=== PATIENT | male | born 1950 | race Caucasian/White ===

== ENCOUNTER → 2023-09-17 10:27 | Outpatient (REF) | payer MEDICARE, OTHER, SELFPAY ==
[2023-09-17 13:13] LABS: Urine Albumin Negative (Neg - Trace); Urine Bilirubin Negative (Negative); Urine Character Clear (Clear); Urine Color Yellow; Urine Glucose Negative (Negative); Urine Ketone Negative (Negative); Urine Leukocyte Negative (Negative); Urine Nitrite Negative (Negative); Urine Occult Blood Negative (Negative); Urine Urobilinogen Negative (Neg - 1+)
[2023-09-17 13:14] LABS: PSA, Total - Screen 1.58 ng/ml (0.0-4.0)
== END ==
LOC: REG 10:27
PROVIDERS: ATTENDING PHYSICIAN Family Medicine
DX: R35.0 Frequency of micturition (principal); Z87.442 Personal history of urinary calculi
CPT/HCPCS: 36415; 81003; G0103

== ENCOUNTER → 2023-10-29 10:07 | Outpatient (REF) | payer MEDICARE, OTHER, SELFPAY ==
[2023-10-29 12:35] LABS: ALT (SGPT) 47 U/L (0-50); AST (SGOT) 43 U/L (17-59); Albumin 4.5 g/dl (3.5-5.0); Alkaline Phosphatase 87 U/L (38-126); Direct Bilirubin 0.4 mg/dl (0.0-0.4); Total Bilirubin 1.2 mg/dl (0.2-1.3); Total Protein 6.8 g/dl (6.3-8.2)
[2023-10-29 18:59] LABS: Hepatitis B Surface Antigen Negative (Negative)
[2023-10-29 19:18] LABS: Hepatitis B Surface Antibody Negative; Hepatitis C Antibody Negative (Negative)
[2023-10-29 20:09] LABS: Hepatitis A Antibody, Total Positive (Negative)
== END ==
LOC: REG 10:07
PROVIDERS: ATTENDING PHYSICIAN Internal Medicine Gastroenterology
DX: R79.89 Other specified abnormal findings of blood chemistry (principal)
CPT/HCPCS: 36415; 80076; 86706; 86708; 86803; 87340

== ENCOUNTER → 2023-12-25 09:45 | Outpatient (REF) | payer MEDICARE, OTHER, SELFPAY | LOC: DHSLP 09:45 | PROVIDERS: ATTENDING PHYSICIAN Psychiatry & Neurology Neurology; FAMILY PHYSICIAN Family Medicine | DX: G47.33 Obstructive sleep apnea (adult) (pediatric) (principal) | CPT/HCPCS: 95811 ==

== ENCOUNTER 2024-02-04 10:29 | Inpatient (IN) | payer MEDICARE, OTHER, SELFPAY ==
[2024-02-02] VITALS (13 sets, daily range): BP systolic 104–152; BP diastolic 57–90; PULSE 68; BMI 28.1; BMI 27.1
--- NOTE | 2024-02-02 11:23 | ED.GENMED ---
History of Present Illness
<Trinity Pedroza PA-C - Last Filed: 02/02/24 16:39>
General
Chief Complaint: Chest Pain
Source: patient and spouse
Time Seen by Provider: 02/02/24 11:08
History of Present Illness
History of Present Illness:
73yoM with a history of coronary artery disease s/p PCI, prior CVA, remote history of thyroid cancer, and GERD presenting with his for evaluation of chest pain. Symptoms initially started 4 days ago while he was visiting children in [place]. He
states he was sitting down when he had an abrupt onset of L sided chest discomfort. The pain was severe initially. He took an extra dose of Protonix without improvement but had relief with nitroglycerin. He has been having intermittent chest
discomfort since that time. He states it feels like something is sitting on his chest. The discomfort comes and goes randomly and lasts about 20 minutes before resolving. Nothing makes the pain better or worse. He also reports shortness of breath,
epigastric pain, and abdominal bloating. He denies any syncope, diaphoresis, nausea, vomiting, fevers. 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
Past History
<Trinity Pedroza PA-C - Last Filed: 02/02/24 16:39>
Past History
ED Past Medical History: CAD, Cancer (thyroid), CVA (February 2019), HTN, Hypercholesterolemia, SD and Hypothyroidism
ED Past Surgical History: Cardiac
Social History
Tobacco: Non-smoker
Alcohol: None
Personal:
Living: with family
Employment: Employed
Family History
Family History: Other (Father with coronary disease)
Phy Exam
<Trinity Pedroza PA-C - Last Filed: 02/02/24 16:39>
General Physical Exam
General Presentation: well appearing and no apparent distress
General age: appears stated age
General Skin: warm and dry
General Habitus: normal
General Mental: alert
Cardiovascular Exam
Cardiovascular Exam: regular rate/rhythm, no edema and no murmur
Pulmonary Exam
Pulmonary Exam: lungs clear, no respiratory distress, no crackles and no wheezing
Skin Exam
Skin Exam: normal color and warm/dry
Psychiatric Exam
Psychiatric Exam: normal mood/affect
Scores
<Trinity Pedroza PA-C - Last Filed: 02/02/24 16:39>
Heart Score for Chest Pain Patients
STEMI patient?: No
History: Moderately Suspicious
ECG: Nonspecific Repolarization
Age: >/= 65 years
Risk Factors: >/= 3 Risk Factors or History of CAD
Troponin: </= Normal Limit
Heart Score for Chest Pain Patients: 6
Heart Score Risk: 20.3% MACE over next 6 weeks
Course
<Trinity Pedroza PA-C - Last Filed: 02/02/24 16:39>
Orders/Labs/Results
Orders:
Orders
02/02/24 11:03
ECG [Electrocardiogram (*1)] Urgent
Reason for Study: Chest Pain
EKG- Treatment ONCE
02/02/24 11:27
CT Abd/pelvis W Iv Cont Urgent
Comment:
Reason For Exam: Epigastric pain
Cardiac Monitoring- Treatment ONCE
CR Chest - 2 Views Urgent
Comment:
Reason For Exam: CP
02/02/24 11:31
Complete Blood Count/With Diff Urgent
Comprehensive Metabolic Panel Urgent
Lipase Urgent
Troponin I Urgent
02/02/24 13:28
EKG- Treatment ONCE
02/02/24 14:24
Troponin I Urgent
02/02/24 14:30
Electrocardiogram (*1) Urgent
Reason for Study: Chest Pain
Abnormal Lab Results
02/02/24
11:31
Absolute Monos (auto) 0.7 H 10^3/uL
(0.1-0.6)
Carbon Dioxide 31 H mmol/L
(22-30)
BUN 22 H mg/dl
(9-20)
Glucose 103 H mg/dl
(70-99)
ALT 52 H U/L
(0-50)
02/02/24 11:31
02/02/24 11:31
Vital Signs
Initial and Last Documented VS:
Initial Vital Signs
Temp Pulse Resp BP Pulse Ox
98.1 F 76 18 126/79 97
02/02/24 11:04 02/02/24 11:04 02/02/24 11:04 02/02/24 11:04 02/02/24 11:04
Last Documented Vital Signs
Temp Pulse Resp BP Pulse Ox
98.1 F 68 19 145/81 94
02/02/24 11:04 02/02/24 15:15 02/02/24 15:15 02/02/24 15:00 02/02/24 15:15
<Tony Almonte MD - Last Filed: 02/02/24 14:56>
Orders/Labs/Results
Orders:
Orders
02/02/24 11:03
ECG [Electrocardiogram (*1)] Urgent
Reason for Study: Chest Pain
EKG- Treatment ONCE
02/02/24 11:27
CT Abd/pelvis W Iv Cont Urgent
Comment:
Reason For Exam: Epigastric pain
Cardiac Monitoring- Treatment ONCE
CR Chest - 2 Views Urgent
Comment:
Reason For Exam: CP
02/02/24 11:31
Complete Blood Count/With Diff Urgent
Comprehensive Metabolic Panel Urgent
Lipase Urgent
Troponin I Urgent
02/02/24 13:28
EKG- Treatment ONCE
02/02/24 14:24
Troponin I Urgent
02/02/24 14:30
Electrocardiogram (*1) Urgent
Reason for Study: Chest Pain
Abnormal Lab Results
02/02/24
11:31
Absolute Monos (auto) 0.7 H 10^3/uL
(0.1-0.6)
Carbon Dioxide 31 H mmol/L
(22-30)
BUN 22 H mg/dl
(9-20)
Glucose 103 H mg/dl
(70-99)
ALT 52 H U/L
(0-50)
02/02/24 11:31
02/02/24 11:31
Vital Signs
Initial and Last Documented VS:
Initial Vital Signs
Temp Pulse Resp BP Pulse Ox
98.1 F 76 18 126/79 97
02/02/24 11:04 02/02/24 11:04 02/02/24 11:04 02/02/24 11:04 02/02/24 11:04
Last Documented Vital Signs
Temp Pulse Resp BP Pulse Ox
98.1 F 68 19 145/81 94
02/02/24 11:04 02/02/24 15:15 02/02/24 15:15 02/02/24 15:00 02/02/24 15:15
<Trinity Pedroza PA-C - Last Filed: 02/02/24 16:39>
MDM/Problems Addressed
Differential Diagnosis Includes:
73yoM here with chest and epigastric pain. Intermittent x 3-4 days. Initially improved with nitroglycerin. Also c/o SOB. Hx of CAD s/p PCI. He is afebrile and hemodynamically stable. He is well appearing in no distress. Exam is reassuring.
Differential diagnosis includes but is not limited to: ACS, arrhythmia, GERD, gastritis, pneumonia, less likely PE, doubt aortic dissection
Initial ED plan: Check cardiac labs, lipase, EKG, CXR, and CT abdomen.
<Trinity Pedroza PA-C - Last Filed: 02/02/24 16:39>
*EKG
Interpreted by ED Provider?: Yes
EKG Intrepretation Date: 02/02/24
Heart Rate: 63
Rate: normal
Rhythm: sinus
Interval: normal interval
QRS Pattern: normal QRS
Ischemia: T-wave inversion (aVL, V2, V3, V4)
*Critical Care Note
Total Time (30-74mins, 75-104mins- exclusive of procedures): Not Applicable
<Trinity Pedroza PA-C - Last Filed: 02/02/24 16:39>
Update Note
Update Note:
Labs overall unremarkable. EKG shows NSR with nonspecific T wave changes which appears unchanged from prior EKG. Troponin WNL. CXR is clear. CT abdomen is negative for acute findings. Dr. Almonte discussed case with cardiology. Will plan for admission
for further evaluation.
ED Attending Note
<Trinity Pedroza PA-C - Last Filed: 02/02/24 16:39>
-
Portions of this chart may have been created with voice recognition software.� Occasional wrong word or��sound alike� substitutions may have occurred due to the inherent limitations of voice recognition software.
<Tony Almonte MD - Last Filed: 02/02/24 14:56>
ED Attending Note
Patient seen and examined by attending physician: Yes
I performed the substantive portion of visit, reviewed & personally made and approve the management plan that is documented in note by myself or ADONAY.: Yes
ED Attending Note:
73-year-old male with recurring episodes of lower anterior chest pain. Nonexertional. Has occurred intermittently for the last 3 to 4 days. Was relieved with nitroglycerin in the 1 night. Currently asymptomatic. Patient with known cardiac
stents.
Lungs clear and equal. Heart regular rate and rhythm. Warm and dry. Abdomen nontender. No rebound or guarding no mass or hernia.
EKG is stable. Old anterior lateral changes. This very well may be an epigastric issue. However with intermittent recurring symptoms, relief with nitroglycerin and cardiac stenting feel this warrants a cardiac consultation.
Discharge Plan
Departure
Patient Disposition: Admit
Date of Disposition: 02/02/24
Time of Disposition: 15:06
Presentation/result/management discussed w/ accepting MD/DO: Hospitalist
Discharge Problem:
Chest pain
Prescriptions:
No Action
aspirin 81 MG tablet,delayed release (DR/EC)
81 mg PO QPM
levothyroxine [Levoxyl] 125 MCG tablet
125 mcg PO DAILY
Patient Comments:
02/02/24: Top Waddy wants the patient to only take Levoxyl, not generic. Spouse willing to bring Levoxyl from home.
losartan 25 MG tablet
12.5 mg PO QPM
ezetimibe 10 MG tablet
10 mg PO QPM
icosapent ethyl [Vascepa] 1 GM capsule
1 gm PO BID
nitroglycerin 0.4 MG tablet, sublingual
0.4 mg sublingual [id number] PRN (Reason: chest pain)
famotidine [Pepcid] 20 mg Tablet
20 mg PO DAILY
pantoprazole [Protonix] 40 mg Tablet,Delayed Release (Dr/Ec)
40 mg PO QPM
ketoconazole 2 % Shampoo
1 applic TOPICAL Q4D
fluticasone propionate 50 mcg/actuation [place],Suspension
1 spray INTRANASAL HSPRN PRN (Reason: conjestion)
rosuvastatin 40 mg Tablet
40 mg PO QPM
Centrum Silver 0.4 mg-300 mcg- 250 mcg Tablet
1 tab PO QPM
Eliquis 5 mg Tablet
5 mg PO BID
Referrals:
Dyan Martel MD [Family Provider] -
Interventions
Interventions:
*Risk Screen - Suicide Last Done: 02/02/24 11:04
*General Assessment Last Done: 02/02/24 11:04
*Neglect/Abuse Screening Last Done: 02/02/24 11:04
ED- Cardiac Assessment Last Done: 02/02/24 11:34
Discharge Date and Time
Print Language: VINCENTIAN
[2024-02-02 11:38] LABS: % Basophils 0.6 % (0-2); % Immature Granulocytes 0.4 % (0-0.5); % Lymphocytes 28.6 % (20.5-51.1); % Monocytes 8.4 % (1.7-9.3); Absolute Basophils 0.1 10^3/uL (0-0.2); Absolute Eosinophils 0.1 10^3/uL (0-0.7); Absolute Lymphocytes 2.4 10^3/uL (1.2-3.4); Absolute Monocytes 0.7 10^3/uL (0.1-0.6); Absolute Neutrophils 5.1 10^3/uL (1.4-6.5); Hematocrit 44.5 % (39.0-52.0); Hemoglobin 15.7 g/dL (13.0-18.0); Mean Corp Hgb Conc. 35.3 g/dL (33.0-37.0); Mean Corpuscular Volume 82.3 fL (80.0-94.0); Mean Platelet Volume 8.9 fL (7.4-10.4); Nucleated Red Blood Cells % 0 % (-); Platelet Count 331 10^3/uL (130-400); Red Blood Cell Count 5.41 10^6/uL (4.70-6.10); Red Cell Dist. Width 12.7 % (11.5-14.5); White Blood Cell Count 8.3 10^3/uL (4.8-10.8)
[2024-02-02 11:52] LABS: ALT (SGPT) 52 U/L (0-50); AST (SGOT) 38 U/L (17-59); Albumin 4.7 g/dl (3.5-5.0); Alkaline Phosphatase 109 U/L (38-126); Blood Urea Nitrogen 22 mg/dl (9-20); Calcium 10.2 mg/dl (8.4-10.2); Carbon Dioxide 31 mmol/L (22-30); Chloride 101 mmol/L (98-107); Estimated Creatinine Clearance 58 ml/min; Glucose 103 mg/dl (70-99); Lipase 139 U/L (23-300); Potassium 4.2 mmol/L (3.5-5.1); Sodium 139 mmol/L (135-145); Total Bilirubin 1.2 mg/dl (0.2-1.3); Total Protein 7.2 g/dl (6.3-8.2); eGFR > 60.00
[2024-02-02 12:03] LABS: Troponin I < 0.012 ng/ml
[2024-02-02 15:04] LABS: Troponin I < 0.012 ng/ml
--- NOTE | 2024-02-02 15:52 | CON.CAR ---
Addendum entered and electronically signed by Alex Cobos MD 02/02/24 17:15:
I saw and examined the patient.
The WIRE WEAVING LOOM SETTER's note was reviewed and I agree with the note.
73-year-old male with a history of coronary artery disease prior history of AK in 2002 with LAD stenting and LAD stenting 2017, GERD, PUD, CVA, hypercholesterolemia, diabetes and papillary thyroid carcinoma who who presents with epigastric
discomfort. He was in [place] and had intense epigastric discomfort on Thursday took Protonix and took 1 nitro. In total symptoms lasted 30 to 60 minutes. He had improvement after nitro but it is not clear how long it took to improve improvement did
not sound immediate. He since had some intermittent more more mild epigastric discomfort that occurred every day for the last 4 days. No clear precipitating factors. No additional GI symptoms. He was recently able to walk on his treadmill at 3.5
more miles per hour without development of epigastric pain. He said some recurrent episodes in the ER but is currently comfortable in no distress. ECG shows sinus rhythm with prior anterior AK and prior inferior AK. Troponin negative.
Exact etiology of symptoms unclear. Patient with known history of coronary artery disease which raises the possibility that symptoms could represent angina. However pieces of the pattern of his symptoms and lack of symptoms with physical exertion
makes coronary ischemia less likely. Would also consider intra-abdominal causes.
-Observation on telemetry
-Serial troponins
-Aspirin
-Hold Eliquis and transition to heparin while patient is being evaluated
Original Note:
Consultation
Consultation Request
Date/Time Consultation Requested: 02/02/2024 15:30
Date/Time Consultation Performed: 02/02/2024 15:40
Requesting Provider: Trinity Pedroza PA-C
Performing Provider: NAZ Zapata for Dr. Cobos
Reason for Consultation: Epigastric pain
Medical History
-
Chief Complaint: Chest pain
History of Present Illness:
Yusef Sommer is a 73-year-old male born in [facility] and immigrated in 1990 (known to Dr. Stuart Fisher, his primary bar tacker), with coronary artery disease (N0�apical myocardial infarction treated with thrombolytic therapy/salvage
angioplasty/stenting of the LAD and angioplasty of the second diagonal branch, 10/2002), acute coronary syndrome treated with angioplasty/stenting of the mid LAD (2017), 50% D2 stenosis by cardiac catheterization 2017, presumed cardioembolic stroke
status post thrombolytic therapy (on apixaban), LUISA on CPAP, dyslipidemia, PUD with H. pylori gastritis, depression, BPV, papillary thyroid carcinoma status post resection/XRT (2011), and ILR who presented to the emergency department with a chief
complaint of epigastric discomfort. His epigastric discomfort started 3 to 4 days ago while visiting his family in [place]. He had an abrupt onset of 10/10 lower chest discomfort. He took Protonix and had some water like he normally does for his
GERD and it did not improve. His then insisted he take a nitroglycerin and his pain resolved. He was considering going to the emergency department but was not sure where the best place was to get care in [place] so he held off. His 10/10
chest pain did not radiate but he reports his left arm 'felt weak' and lasted approximately 30 minutes. Stent that episode, he has been having intermittent discomfort. It does not last more than 15 minutes. Nothing makes it better or worse. He
reports he went on a walk yesterday and does not recall having any discomfort during his walk. He does endorse some decreased exercise tolerance as long as fatigue. He had the settings on his CPAP changed and even got a new machine and his fatigue
is not improving.
Past Medical History
Past Medical History: CAD, Cancer (Papillary thyroid carcinoma), CVA, GERD, Hypercholesterolemia, NIDDM and Other (LUISA on CPAP, PUD with H. pylori)
Past Surgical History: Other (Hernia repair [Reyes, 2022])
Social History
Tobacco: Former Smoker
Alcohol: None
Drug: None
Personal:
Living: With Family
Family History
Family History: Reviewed & Not Pertinent
Allergies / Home Medications
Allergy/AdvReac Type Severity Reaction Status Date / Time
bee venom protein (honey bee) Allergy Syncopy, Verified 02/02/24 11:01
Vagal
Reaction
lisinopril Allergy Dry Cough Verified 02/02/24 11:01
morphine Allergy Hives Verified 02/02/24 11:01
�Medication �Instructions �Recorded �Confirmed �Type
aspirin 81 mg tablet,delayed 81 mg PO QPM 09/16/16 02/02/24 History
release
ezetimibe 10 mg tablet 10 mg PO QPM 10/29/20 02/02/24 History
icosapent ethyl 1 gram capsule 1 gm PO BID 10/29/20 02/02/24 History
(Vascepa)
levothyroxine 125 mcg tablet 125 mcg PO DAILY 10/29/20 02/02/24 History
(Levoxyl)
losartan 25 mg tablet 12.5 mg PO QPM 10/29/20 02/02/24 History
nitroglycerin 0.4 mg sublingual 0.4 mg sublingual [id number] PRN 10/29/20 02/02/24 History
tablet chest pain
famotidine 20 mg tablet (Pepcid) 20 mg PO DAILY 11/25/22 02/02/24 History
pantoprazole 40 mg tablet,delayed 40 mg PO QPM 11/25/22 02/02/24 History
release (Protonix)
apixaban 5 mg tablet (Eliquis) 5 mg PO BID 02/02/24 02/02/24 History
fluticasone propionate 50 1 spray intranasal HSPRN PRN 02/02/24 02/02/24 History
mcg/actuation nasal conjestion
spray,suspension
ketoconazole 2 % shampoo 1 applic topical Q4D 02/02/24 02/02/24 History
ewwjfckf-fiw-svnqp acid 0.4 1 tab PO QPM 02/02/24 02/02/24 History
mg-lycopene 300 mcg-lutein 250 mcg
tablet (Centrum Silver)
rosuvastatin 40 mg tablet 40 mg PO QPM 02/02/24 02/02/24 History
Review of Systems
-
History Source: Patient
All other systems: Negative unless noted
Constitutional: Fatigue
EENT: No Symptoms
Respiratory: No Symptoms
Cardiac: Chest Pain
Abdomen/GI: No Symptoms
: No Symptoms
Musculoskeletal: No Symptoms
Skin: No Symptoms
Neurological: No Symptoms
Endocrine: No Symptoms
Hematologic/Lymphatic: No Symptoms
Physical Exam
Vital Signs
Temp Pulse Resp BP Pulse Ox
98.1 F 68 19 145/81 94
02/02/24 11:04 02/02/24 15:15 02/02/24 15:15 02/02/24 15:00 02/02/24 15:15
Lab Results
02/02/24 11:31
02/02/24 11:31
Troponin I < 0.012 ng/ml 02/02/24 14:24
Physical Exam
General: Well Developed, Well Nourished, No Apparent Distress and Comfortable
HEENT: Normocephalic, Anicteric and Moist Mucous Membranes
Respiratory: Clear and Non Labored Respirations
Cardiac: S1/S2 and Regular Rhythm; Negative Peripheral Edema
Breast: Deferred by me
GI: Soft, Non Tender, Non Distended and Normal Bowel Sounds
Rectal: Deferred by Provider
Genito-urinary: No Costovertebral Tender
Musculoskeletal: No Clubbing, No Cyanosis and No Edema
Skin: Warm and Dry
Neuro: AO x 3
Hematologic/Lymphatic: No Lymphadenopathy
Psych: Calm
Impression / Plan
-
Chest discomfort
-EKG stable, troponin <0.012 x 2
-Nothing makes it better or worse
-Exercise nuclear stress test in a.m., n.p.o. after midnight
-Hold apixaban and start heparin, continue aspirin
Fatigue, ongoing for nearly 1 year
Coronary artery disease
-2003: thrombolytic therapy/salvage angioplasty/stenting of the left anterior descending artery and angioplasty of the second diagonal branch of the left anterior descending artery
-2018: angioplasty/stenting of the mid left anterior descending artery
-Continue medical therapy
Prior cardioembolic stroke, on apixaban, ILR did not reveal atrial fibrillation after 3 years
Dyslipidemia, on Zetia, rosuvastatin, and Vascepa
GERD, on Pepcid
Prior H. pylori, treated
Papillary thyroid carcinoma s/p resection and XRT (2011)
LUISA, on CPAP
Data Reviewed
-
EKG: Report Reviewed by me (Sinus rhythm, first-degree AV block, old anteroseptal infarct, rate 74; sinus rhythm, first-degree AV block, rate 63)
Radiology: Report Reviewed by me (CXR: No acute cardiopulmonary process)
CT Scan: Report Reviewed by me (Abdomen/pelvis: No acute abnormality)
Labs: Labs Reviewed by me
Old Records: Reviewed
--- NOTE | 2024-02-02 16:36 | HPS.HSE ---
Family Physician
-
Family Physician: Dyan Martel MD
Chief Complaint
-
Chest Pain
History of Present Illness
73 y/o male with a past medical history of atrial fibrillation, coronary artery disease s/p PCI, prior CVA, remote history of thyroid cancer, GERD and additional medical history in the assessment and plan section below presented with his for
evaluation of chest pain. Patient's symptoms initially started 4 days ago while he was visiting children in [place]. He states he has been having lower chest pain and epigastric pain for a few days, he took an extra dose of Protonix without
improvement but had relief with nitroglycerin. He has been having intermittent chest discomfort since that time. He states it feels like something is sitting on his chest, now with pain on the left side of his chest. He denied any alleviating or
exacerbating factors. He also reports shortness of breath, epigastric pain, and abdominal bloating. He denied any syncope, diaphoresis, nausea, vomiting, or fevers.
Medical History
Past Medical History
Past Medical History: Reports Other (As per HPI above)
Past Surgical History: Reports Other (Thyroid Resection, Cardiac Stent, Linq explant)
Social History
Tobacco: Former Smoker
Alcohol: None
Drug: None
Family History
Family History: CAD, Cancer, Diabetes and Hypertension
Allergies / Home Medications
Allergies reflects when Allergies were last updated in [facility].
Home Medications with original date entered in [facility]
Allergy/Medication List:
Allergies
Allergy/AdvReac Type Severity Reaction Status Date / Time
bee venom protein (honey bee) Allergy Syncopy, Verified 02/02/24 11:01
Vagal
Reaction
lisinopril Allergy Dry Cough Verified 02/02/24 11:01
morphine Allergy Hives Verified 02/02/24 11:01
Home Medications
aspirin 81 mg tablet,delayed release 81 mg PO QPM 09/16/16
ezetimibe 10 mg tablet 10 mg PO QPM 10/29/20
icosapent ethyl 1 gram capsule (Vascepa) 1 gm PO BID 10/29/20
levothyroxine 125 mcg tablet (Levoxyl) 125 mcg PO DAILY 10/29/20
losartan 25 mg tablet 12.5 mg PO QPM 10/29/20
nitroglycerin 0.4 mg sublingual tablet 0.4 mg sublingual [id number] PRN chest pain 10/29/20
famotidine 20 mg tablet (Pepcid) 20 mg PO DAILY 11/25/22
pantoprazole 40 mg tablet,delayed release (Protonix) 40 mg PO QPM 11/25/22
apixaban 5 mg tablet (Eliquis) 5 mg PO BID 02/02/24
fluticasone propionate 50 mcg/actuation nasal spray,suspension 1 spray intranasal HSPRN PRN conjestion 02/02/24
ketoconazole 2 % shampoo 1 applic topical Q4D 02/02/24
xdwgqeom-yey-fxshs acid 0.4 mg-lycopene 300 mcg-lutein 250 mcg tablet (Centrum Silver) 1 tab PO QPM 02/02/24
rosuvastatin 40 mg tablet 40 mg PO QPM 02/02/24
Review of Systems
-
A 12 point ROS was completed and negative except as noted: Yes
Physical Exam
Vital Signs
Vital Signs
Temp Pulse Resp BP Pulse Ox
98.1 F 68 19 145/81 94
02/02/24 11:04 02/02/24 15:15 02/02/24 15:15 02/02/24 15:00 02/02/24 15:15
Physical Exam
General: No Apparent Distress and Conversant
HEENT: NormoCephalic
Respiratory: Clear
Cardiac: S1/S2 and Regular Rhythm
GI: Soft, Non Tender and Normal Bowel Sounds
Musculoskeletal: No Cyanosis and No Edema
Skin: Warm and Dry
Neuro: Awake, Alert, AO x 3 and Nonfocal/grossly intact
Psych: Calm and Intact Judgment/Insight
Laboratory Results
-
02/02/24 11:31
02/02/24 11:31
Laboratory Results
Total Bilirubin 1.2 mg/dl (0.2-1.3) 02/02/24 11:31
AST 38 U/L (17-59) 02/02/24 11:31
ALT 52 U/L (0-50) H 02/02/24 11:31
Alkaline Phosphatase 109 U/L (38-126) 02/02/24 11:31
Troponin I < 0.012 ng/ml 02/02/24 14:24
Lipase 139 U/L (23-300) 02/02/24 11:31
Impression/Plan
-
Assessment/Plan
Chest Pain
Coronary artery disease status post PCI
History of Myocardial Infarction
-Trend troponins
-Heparin Drip given high pretest probability
-Hold home Eliquis for now
-May have to investigate for a GI source of symptoms if cardiac work-up is negative
-Exercise nuclear stress test in a.m., n.p.o. after midnight
-Continue Aspirin
History of Cardioembolic Stroke - ILR did not reveal atrial fibrillation after 3 years
-Holding Eliquis as above
Hyperlipidemia
-Continue Zetia, rosuvastatin, and Vascepa
Peptic Ulcer Disease with History of H. Pylori
GERD
-Continue Pepcid
Prediabetes
History of Papillary Thyroid Carcinoma
-Continue Levothyroxine
Obstructive Sleep Apnea
History of Kidney Stone
BPPV
Depression
BPH
Colonic Adenoma?
COVID in 05/2022
Code Status: Full Code
DVT PPx: Heparin Drip
[2024-02-02] MEDS: HEPARIN 4000 UNITS IV (17:23)
[2024-02-02] MEDS: HEPARIN 25000 UNITS/250 ML IV (17:24)
[2024-02-02 17:42] LABS: Hematocrit 37.2 % (39.0-52.0); Hemoglobin 13.2 g/dL (13.0-18.0); Mean Corp Hgb Conc. 35.5 g/dL (33.0-37.0); Mean Corpuscular Hgb 29.1 pg (27.0-31.0); Mean Corpuscular Volume 81.9 fL (80.0-94.0); Mean Platelet Volume 8.8 fL (7.4-10.4); Platelet Count 286 10^3/uL (130-400); Red Blood Cell Count 4.54 10^6/uL (4.70-6.10); Red Cell Dist. Width 12.5 % (11.5-14.5)
[2024-02-02 17:52] LABS: APTT 33.7 Sec (23.4-35.0)
[2024-02-02] MEDS: PROTONIX 40 MG PO (20:34)
[2024-02-02] MEDS: ASPIR LOW (ENTERIC COATED) 81 MG PO (20:34)
[2024-02-02] MEDS: CRESTOR 40 MG PO (20:34)
[2024-02-02] MEDS: THERAGRAN 1 TABLET PO (20:34)
[2024-02-02] MEDS: ZETIA 10 MG PO (20:34)
[2024-02-02] MEDS: COZAAR 12.5 MG PO (20:35)
[2024-02-02 21:01] LABS: Troponin I < 0.012 ng/ml
[2024-02-02] MEDS: NITROSTAT (SUBLINGUAL) 0.4 MG SL (23:50)
[2024-02-03] VITALS (8 sets, daily range): BP systolic 104–121; BP diastolic 62–78; PULSE 72
[2024-02-03 00:03] LABS: APTT 56.5 Sec (23.4-35.0)
[2024-02-03] MEDS: TORADOL 15 MG IV (00:37)
[2024-02-03 02:48] LABS: Troponin I < 0.012 ng/ml
--- NOTE | 2024-02-03 04:11 | DOWNTIME ---
There was a [employer] Nurse Downtime on 02/03/2024 from 0100 to 02/03/2024 at 0255. Downtime documentation of patient's care, including medication administrations, has been reconciled in the electronic record per guidelines. Refer to the
patient's paper chart under the miscellaneous tab to see printed paper medication records and downtime forms.
[2024-02-03 07:51] LABS: APTT 82.4 Sec (23.4-35.0)
[2024-02-03 08:02] LABS: Troponin I < 0.012 ng/ml
[2024-02-03 08:53] LABS: Hematocrit 45.9 % (39.0-52.0); Hemoglobin 15.9 g/dL (13.0-18.0); Mean Corp Hgb Conc. 34.6 g/dL (33.0-37.0); Mean Corpuscular Hgb 29.3 pg (27.0-31.0); Mean Corpuscular Volume 84.7 fL (80.0-94.0); Platelet Count 303 10^3/uL (130-400); Red Blood Cell Count 5.42 10^6/uL (4.70-6.10); Red Cell Dist. Width 12.7 % (11.5-14.5); White Blood Cell Count 8.3 10^3/uL (4.8-10.8)
[2024-02-03] MEDS: PEPCID 20 MG PO (11:13)
[2024-02-03] MEDS: SYNTHROID 125 MCG PO (11:13)
--- NOTE | 2024-02-03 14:11 | W.PN.CD ---
Addendum entered and electronically signed by Shivam Zepeda MD 02/03/24 17:45:
73 yo male with prior ND and LAD stent presents with epigastric pain. He does not complain of chest pain. Exam with RRR, no murmurs, no edema.
He underwent exercise nuclear stress test today. 9.5 min without chest pain or ischemic EKG changes. Perfusion showed evidence of anterior/anteroseptal infarct without ischemia.
Discussed with hospitalist team. I do not think his presentation is consistent with angina.
GI etiology to be investigated by hospitalist.
Please call us back with additional questions.
Original Note:
Today's Communication / Plan
-
-stress test without ischemia. Trops normal. Does not appear to have cardiac cause of CP. Consider other etiologies such as GI work-up per primary team. Can transition back to Eliquis from heparin today from cardiac standpoint. Follow-up with
Phillip (his deputy jailer) after d/c.
Impression / Plan
-
Chest discomfort:
-currently none, but did have any episode overnight
-EKG stable, troponin <0.012 x 5
-stress test showed old infract, but no ischemia
-does not appear to be cardiac cause
-could this be GI? W/u per primary.
Fatigue, ongoing for nearly 1 year
Coronary artery disease
-2002: thrombolytic therapy/salvage angioplasty/stenting of the left anterior descending artery and angioplasty of the second diagonal branch of the left anterior descending artery
-2018: angioplasty/stenting of the mid left anterior descending artery
-Continue medical therapy- ASA, statin, nitro
Prior cardioembolic stroke, on apixaban, ILR did not reveal atrial fibrillation after 3 years
Dyslipidemia, on Zetia, rosuvastatin, and Vascepa
GERD, on Pepcid
Prior H. pylori, treated
Papillary thyroid carcinoma s/p resection and XRT (2011)
LUISA, on CPAP
Physical Exam
Vital Signs/Labs
Vital Signs
Temp Pulse Resp BP Pulse Ox
98.0 F 76 18 111/78 94
02/03/24 11:00 02/03/24 11:00 02/03/24 11:00 02/03/24 11:00 02/03/24 11:00
02/02/24 02/03/24 02/04/24
06:59 06:59 06:59
Actual Weight 80.796 kg
02/03/24 07:23
02/02/24 11:31
APTT 82.4 Sec (23.4-35.0) H 02/03/24 07:23
LAB Results
02/02/24 02/02/24 02/02/24
11:31 14:24 20:26
Troponin I < 0.012 < 0.012 < 0.012
02/03/24 02/03/24 02/03/24
02:20 07:23 14:30
Troponin I < 0.012 < 0.012 Cancelled
02/03/24
20:30
Troponin I Cancelled
Physical Exam
Constitutional: No acute distress
EENT: Anicteric
Cardiovascular: Rhythm & rate is regular
Respiratory: Respiratory effort normal and Lungs clear to auscul.
Neuro/Psych: AO x 3
Other: Skin (warm and dry)
Data Reviewed
-
Date of Service: February 03, 2024
EKG: Other (tele SR)
--- NOTE | 2024-02-03 14:43 | CM ---
Patient seen with , initial assessment completed. Patient resides with his in a two story home, no steps to enter. Patient denies VN or SNF, denies DME other than CPAP through [employer]. Patient confirms PCP Dyan Martel, pharmacy [facility]
[place], however, prefers the [facility] on [address], confirms prescription coverage (Medicare Part D). Patient denies food, housing/utility, and transportation insecurities. ROSS form reviewed, signed, placed in chart. CM will continue to follow
for all discharge planning needs.
Plan; home no needs anticipated.
[2024-02-03 15:11] LABS: APTT 50.7 Sec (23.4-35.0)
[2024-02-03] MEDS: HEPARIN 25000 UNITS/250 ML IV (16:19)
[2024-02-03] MEDS: CRESTOR 40 MG PO (17:19)
[2024-02-03] MEDS: ZETIA 10 MG PO (17:19)
[2024-02-03] MEDS: THERAGRAN 1 TABLET PO (17:19)
[2024-02-03] MEDS: PROTONIX 40 MG PO (17:19)
[2024-02-03] MEDS: ASPIR LOW (ENTERIC COATED) 81 MG PO (17:19)
[2024-02-03] MEDS: COZAAR 12.5 MG PO (17:20)
--- NOTE | 2024-02-03 17:30 | W.PN.HOSP.TC ---
Today's Communication/Plan
-
Plan to consult GI given patient's upper abdominal symptoms
Stress test showed old infarct
Assessment / Plan
Assessment / Plan
Physical Exam
Physical exam was not performed as patient was not present in his room at the time of attempted patient encounter.
Assessment/Plan
Chest Pain
Coronary artery disease status post PCI
History of Myocardial Infarction
-Trend troponins
-Resume home Eliquis, and stop Heparin Drip
-Stress test today showed old infarct
-Will consult GI given his symptoms since cardiac work-up is negative
-Continue Aspirin, Statin and Nitro
History of Cardioembolic Stroke - ILR did not reveal atrial fibrillation after 3 years
-Resume home Eliquis
Hyperlipidemia
-Continue Zetia, rosuvastatin, and Vascepa
Peptic Ulcer Disease with History of H. Pylori
GERD
-Continue Pepcid
Prediabetes
History of Papillary Thyroid Carcinoma
-Continue Levothyroxine
Obstructive Sleep Apnea
History of Kidney Stone
BPPV
Depression
BPH
Colonic Adenoma?
COVID in 05/2022
Code Status: Full Code
DVT PPx: Eliquis
Anticipated Discharge: 24 - 48 hours
Subjective/Interval History
-
Date of Service: February 03, 2024
Patient was not present in his room at the time of attempted patient encounter. Chart reviewed and case discussed with patient's who was present in patient's room.
Objective Data
-
Labs:
Laboratory Results
02/03/24 02/03/24 02/03/24
07:23 14:25 22:00
WBC 8.3
Hgb 15.9 D
Hct 45.9
Plt Count 303
APTT 82.4 H 50.7 H Pending
Vital Signs:
Vital Signs
Temp Pulse Resp BP Pulse Ox
98.0 F 63 18 114/63 94
02/03/24 15:00 02/03/24 15:00 02/03/24 15:00 02/03/24 15:00 02/03/24 15:00
I&O
02/02/24 02/03/24 02/04/24
06:59 06:59 06:59
Intake Total 0 / 0
Balance 0 / 0
--- NOTE | 2024-02-03 18:03 | PTCARENOTE ---
Heparin gtt discontinued. Pt denies having any chest pain throughout shift, but reports intermittent epigastric pain. Pt denies noticing any pattern to the pain, and says it lasts about a minute before self-resolving and rates it a 3/10 at its
worst. Plan of care ongoing.
[2024-02-03] MEDS: ELIQUIS 5 MG PO (20:08)
[2024-02-04 03:44] VITALS: BP 116/69
[2024-02-04] MEDS: SYNTHROID 125 MCG PO (06:20)
[2024-02-04 07:30] VITALS: BP 111/74
[2024-02-04 08:09] LABS: Hematocrit 43.8 % (39.0-52.0); Hemoglobin 15.6 g/dL (13.0-18.0); Mean Corp Hgb Conc. 35.6 g/dL (33.0-37.0); Mean Corpuscular Hgb 29.3 pg (27.0-31.0); Mean Corpuscular Volume 82.2 fL (80.0-94.0); Mean Platelet Volume 9.2 fL (7.4-10.4); Platelet Count 311 10^3/uL (130-400); Red Blood Cell Count 5.33 10^6/uL (4.70-6.10); Red Cell Dist. Width 12.5 % (11.5-14.5); White Blood Cell Count 8.3 10^3/uL (4.8-10.8)
[2024-02-04] MEDS: ELIQUIS 5 MG PO (08:34)
[2024-02-04] MEDS: NIZORAL SHAMPOO 120 ML TOPICAL (08:35)
[2024-02-04] MEDS: PEPCID 20 MG PO (08:35)
[2024-02-04 08:48] LABS: ALT (SGPT) 47 U/L (0-50); AST (SGOT) 37 U/L (17-59); Albumin 4.5 g/dl (3.5-5.0); Alkaline Phosphatase 104 U/L (38-126); Blood Urea Nitrogen 30 mg/dl (9-20); Calcium 9.6 mg/dl (8.4-10.2); Carbon Dioxide 28 mmol/L (22-30); Chloride 101 mmol/L (98-107); Estimated Creatinine Clearance 66 ml/min; Glucose 96 mg/dl (70-99); Potassium 4.2 mmol/L (3.5-5.1); Sodium 138 mmol/L (135-145); Total Bilirubin 1.5 mg/dl (0.2-1.3); eGFR > 60.00
[2024-02-04 10:25] VITALS: BP 136/73
--- NOTE | 2024-02-04 10:28 | W.PN.HOSP.TC ---
Today's Communication/Plan
-
Discharge today
Assessment / Plan
Assessment / Plan
Physical Exam
General: No Apparent Distress and Conversant
HEENT: Normocephalic
Respiratory: Clear to Auscultation Bilaterally
Cardiac: S1/S2 and Regular Rhythm
GI: Soft, Non Tender and Normal Bowel Sounds
Musculoskeletal: No Cyanosis and No Edema
Skin: Warm and Dry
Neuro: Awake, Alert, AO x 3 and Nonfocal/grossly intact
Psych: Calm and Intact Judgment/Insight
Assessment/Plan
Chest Pain
Epigastric/Upper Abdominal Pain - IMPROVED SIGNIFICANTLY
Coronary artery disease status post PCI
History of Myocardial Infarction
-Stress test today showed old infarct
-Will consult GI given his symptoms since cardiac work-up is negative
-Continue Aspirin, Statin and Nitro
-Lipase, AST and ALT are normal
-Asked GI to schedule close outpatient follow-up
History of Cardioembolic Stroke - ILR did not reveal atrial fibrillation after 3 years
-Continue home Eliquis
Hyperlipidemia
-Continue Zetia, rosuvastatin, and Vascepa
Peptic Ulcer Disease with History of H. Pylori
GERD
-Continue Pepcid
-Follow-up closely with GI outpatient
Prediabetes
History of Papillary Thyroid Carcinoma
-Continue Levothyroxine
Obstructive Sleep Apnea
History of Kidney Stone
BPPV
Depression
BPH
Colonic Adenoma?
COVID in 05/2022
Code Status: Full Code
DVT PPx: Eliquis
More than 30 minutes spent in discharge including
Final examination of the patient
Summarizing hospital stay
Instructions for continuing care to all relevant caregivers
Preparation of discharge records, prescriptions, and referral forms
Total time spent (in minutes): 37
Anticipated Discharge: Today
Subjective/Interval History
-
Date of Service: February 04, 2024
Patient was seen and examined. He reported that his epigastric/upper abdominal has improved, he denied any other symptoms and mentioned he would be happy to go home today.
Objective Data
-
Labs:
Laboratory Results
02/04/24 02/04/24
00:15 07:20
WBC 8.3
Hgb 15.6
Hct 43.8
Plt Count 311
APTT Cancelled
Sodium 138
Potassium 4.2
Chloride 101
Carbon Dioxide 28
BUN 30 H
Creatinine 1.0
Glucose 96
Calcium 9.6
Total Bilirubin 1.5 H
AST 37
ALT 47
Alkaline Phosphatase 104
Vital Signs:
Vital Signs
Temp Pulse Resp BP Pulse Ox
98.1 F 71 19 136/73 97
02/04/24 10:25 02/04/24 10:25 02/04/24 10:25 02/04/24 10:25 02/04/24 10:25
I&O
02/03/24 02/04/24 02/05/24
06:59 06:59 06:59
Intake Total 0 / 0 720 / 720
Balance 0 / 0 720 / 720
--- NOTE | 2024-02-04 12:00 | CM ---
Addendum entered by Ina Craft 02/04/24 14:51:
Patient switched to inpatient status. IMM reviewed, signed, placed in chart.
Original Note:
Patient seen with , report no needs to CM at this time. CM will continue to follow for all discharge planning needs.
Plan; home no needs anticipated.
[2024-02-04 14:48] VITALS: BP 122/69
== END 2024-02-04 15:14 | disposition home or self-care (01) | DRG 313 ==
LOC: 4 WEST ACU 10:29
PROVIDERS: Nurse Practitioner Gerontology; Physician Assistant; ADMITTING PHYSICIAN Hospitalist; EMERGENCY PHYSICIAN Emergency Medicine; FAMILY PHYSICIAN Family Medicine; OTHER PHYSICIAN Internal Medicine Cardiovascular Disease
DX: R07.9 Chest pain, unspecified (principal); I10 Essential (primary) hypertension; F32.A Depression, unspecified; E89.0 Postprocedural hypothyroidism; I25.10 Atherosclerotic heart disease of native coronary artery without angina pectoris; I25.2 Old myocardial infarction; Z95.5 Presence of coronary angioplasty implant and graft; R10.13 Epigastric pain; E78.5 Hyperlipidemia, unspecified; G47.33 Obstructive sleep apnea (adult) (pediatric); N40.0 Benign prostatic hyperplasia without lower urinary tract symptoms; K21.9 Gastro-esophageal reflux disease without esophagitis; R73.03 Prediabetes; R53.83 Other fatigue; Z79.01 Long term (current) use of anticoagulants; Z79.82 Long term (current) use of aspirin; Z79.890 Hormone replacement therapy; Z79.899 Other long term (current) drug therapy; Z86.16 Personal history of COVID-19; Z87.11 Personal history of peptic ulcer disease; Z86.19 Personal history of other infectious and parasitic diseases; Z85.850 Personal history of malignant neoplasm of thyroid; Z86.73 Personal history of transient ischemic attack (TIA), and cerebral infarction without residual deficits; Z87.442 Personal history of urinary calculi; Z88.5 Allergy status to narcotic agent; Z88.8 Allergy status to other drugs, medicaments and biological substances
CPT/HCPCS: 71046; 74177; 78452; 80053; 83690; 84484; 85025; 85027; 85730; 93005; 93017; 94660; 99285; A9500; Q9967

== ENCOUNTER → 2024-02-11 09:50 | Outpatient (REF) | payer MEDICARE, OTHER, SELFPAY ==
[2024-02-11 11:57] LABS: ALT (SGPT) 45 U/L (0-50); AST (SGOT) 31 U/L (17-59); Albumin 4.5 g/dl (3.5-5.0); Alkaline Phosphatase 105 U/L (38-126); Amylase 170 U/L (30-110); Blood Urea Nitrogen 23 mg/dl (9-20); Calcium 9.5 mg/dl (8.4-10.2); Carbon Dioxide 32 mmol/L (22-30); Chloride 100 mmol/L (98-107); Glucose 103 mg/dl (70-99); Lipase 137 U/L (23-300); Potassium 4.2 mmol/L (3.5-5.1); Sodium 139 mmol/L (135-145); Total Bilirubin 0.8 mg/dl (0.2-1.3); Total Protein 6.8 g/dl (6.3-8.2); eGFR > 60.00
== END ==
LOC: RAD 09:50
PROVIDERS: ATTENDING PHYSICIAN Family Medicine
DX: R10.13 Epigastric pain (principal); M54.50 Low back pain, unspecified
CPT/HCPCS: 36415; 72110; 80053; 82150; 83690

== ENCOUNTER → 2024-02-12 10:56 | Outpatient (REF) | payer MEDICARE, OTHER, SELFPAY | LOC: REG 10:56 | PROVIDERS: ATTENDING PHYSICIAN Family Medicine | DX: R10.13 Epigastric pain (principal) | CPT/HCPCS: 87338 ==

== ENCOUNTER → 2024-03-11 06:18 | Day surgery (SDC) | payer MEDICARE, OTHER, SELFPAY | LOC: GI 06:18 | PROVIDERS: ATTENDING PHYSICIAN Internal Medicine Gastroenterology; FAMILY PHYSICIAN Family Medicine | DX: K31.7 Polyp of stomach and duodenum (principal); K31.89 Other diseases of stomach and duodenum; K44.9 Diaphragmatic hernia without obstruction or gangrene; R12 Heartburn; K29.50 Unspecified chronic gastritis without bleeding | CPT/HCPCS: 43239; 88305; 88342 ==

== ENCOUNTER → 2024-04-27 09:36 | Outpatient (REF) | payer MEDICARE, OTHER, SELFPAY ==
[2024-04-27 11:28] LABS: ALT (SGPT) 46 U/L (0-50); AST (SGOT) 34 U/L (17-59); Albumin 4.4 g/dl (3.5-5.0); Alkaline Phosphatase 106 U/L (38-126); Blood Urea Nitrogen 22 mg/dl (9-20); Calcium 9.3 mg/dl (8.4-10.2); Carbon Dioxide 27 mmol/L (22-30); Chloride 101 mmol/L (98-107); Glucose 105 mg/dl (70-99); HDL Cholesterol 44 mg/dl; LDL Cholesterol, Calculated 43 mg/dl; Potassium 4.1 mmol/L (3.5-5.1); Sodium 142 mmol/L (135-145); Total Bilirubin 0.7 mg/dl (0.2-1.3); Total Cholesterol 111 mg/dl (50-199); Total Protein 6.8 g/dl (6.3-8.2); Triglyceride 120 mg/dl (10-149); Very Low Density Lipoprotein 24 mg/dl (0-30); eGFR > 60.00
[2024-04-27 11:35] LABS: Glycohemoglobin (HgbA1c) 5.9 % (4.0-5.6)
== END ==
LOC: REG 09:36
PROVIDERS: ATTENDING PHYSICIAN Internal Medicine Cardiovascular Disease; FAMILY PHYSICIAN Family Medicine
DX: I10 Essential (primary) hypertension (principal); R73.03 Prediabetes; E78.5 Hyperlipidemia, unspecified; I63.9 Cerebral infarction, unspecified
CPT/HCPCS: 36415; 80053; 80061; 83036

== ENCOUNTER 2024-09-23 17:21 | Observation (INO) | payer MEDICARE, OTHER, SELFPAY ==
[2024-09-23] VITALS (15 sets, daily range): BP systolic 124–181; BP diastolic 74–112; BMI 27.8
--- NOTE | 2024-09-23 13:12 | ED.GENMED ---
History of Present Illness
General
Chief Complaint: Dizziness
Source: patient and spouse
Exam Limitations: none
Time Seen by Provider: 09/23/24 13:12
Nursing documentation reviewed up to this point in time: agreed with except (pt denies epigastric discomfort only c/o of nausea)
History of Present Illness
History of Present Illness:
Patient is a 74 yr old male with history of stroke, CAD with stent 2018 hypertension thyroid cancer GERD on Eliquis presents to the ER for evaluation. Patient reports he felt weird at 4 AM while sleeping open his eyes and the room was spinning.
He reports this lasted for about 5 seconds. He then woke up at 8 AM and when he tried to stand he felt like he was unable to and his balance was off. He did not fall however. He was nauseous with this. Triage note documents reads that pt had
epigastric pain with symptoms. He denies any pain. He only felt nauseous.
He denies any headache. He has had pain in his right nose region to right face for past 3 wks. no cold s/s. He denies any upper or lower extremity numbness tingling weakness. No chest pain no shortness of breath.
Past History
Past History
ED Past Medical History: CAD, Cancer (thyroid), CVA (February 2019), HTN, Hypercholesterolemia, CO and Hypothyroidism
ED Past Surgical History: Cardiac
Social History
Tobacco: Non-smoker
Alcohol: None
Personal:
Living: with family
Employment: Employed
Family History
Family History: Other (Father with coronary disease)
Review of Systems
Review of Systems
Allergies reviewed?: Yes
Other source history: family
All Other Systems: ROS reviewed and negative except as documented in HPI and ROS
Constitutional: Reports no symptoms; Denies fever, fatigue or chills
Respiratory: Reports no symptoms
Cardiac: Reports no symptoms
ABD/GI: Reports nausea; Denies vomiting, diarrhea or constipated
Musculoskeletal: Reports no symptoms
Skin: Reports no symptoms
Neurological: Reports dizzy; Denies headache
Hematologic/Lymphatic: Reports no symptoms
Psychiatric: Reports no symptoms
Phy Exam
General Physical Exam
General Presentation: no apparent distress
General age: appears stated age
General Skin: warm and dry
General Habitus: normal
General Mental: alert
General Hydration: appears well hydrated
Eye Exam
Eye Exam: PERRL, EOMI and other (no nystagmus b/l )
Eye Exam General: PERRL: bilateral and EOM intact: bilateral
Pupil Exam: Bilateral: round and reactive
Neurological Exam
Neurological Exam: alert, oriented x3, no motor deficits and no sensory deficits
Course
Orders/Labs/Results
Orders:
Orders
09/23/24 12:15
Electrocardiogram (*1) Urgent
Reason for Study: Other
Other Reason for Exam: dizzy/unsteady gait
EKG- Treatment ONCE
09/23/24 13:21
CT Head W/o Iv Contrast Urgent
Comment:
Reason For Exam: dizziness balance issues
09/23/24 13:22
Cardiac Monitoring- Treatment ONCE
EKG- Treatment ONCE
IV Insert/Care/Rem.- Treatment PRN
09/23/24 13:40
Complete Blood Count/With Diff Urgent
Comprehensive Metabolic Panel Urgent
Troponin I Urgent
09/23/24 14:36
PT Consult [Pt Eval And Treat] Urgent
Treatment: eval for vertigo
Activity Level: Ambulate
Abnormal Lab Results
09/23/24
13:40
Lymphocytes % 18.8 L %
(20.5-51.1)
BUN 26 H mg/dl
(9-20)
Glucose 109 H mg/dl
(70-99)
Total Bilirubin 1.8 H mg/dl
(0.2-1.3)
ALT 58 H U/L
(0-50)
09/23/24 13:40
09/23/24 13:40
Vital Signs
Initial and Last Documented VS:
Initial Vital Signs
Temp Pulse Resp BP Pulse Ox
98.0 F 84 16 163/109 98
09/23/24 12:08 09/23/24 12:08 09/23/24 12:08 09/23/24 12:08 09/23/24 12:08
Last Documented Vital Signs
Temp Pulse Resp BP Pulse Ox
98.0 F 80 16 151/76 94
09/23/24 12:08 09/23/24 14:45 09/23/24 14:00 09/23/24 14:00 09/23/24 14:45
Concrete Vault Maker consulted with Physician
Concrete Vault Maker consulted with physician?: Yes
Name of Physician Consulted: DR Reuben Trent
MDM/Problems Addressed
Differential Diagnosis Includes:
not limited to: BPV, stroke, less likely dissection
MDM/Problems Addressed:
Patient is a 74-year-old male with past medical history of stroke and CO presents with dizziness. Initially as documented he reported that room was spinning around 4 AM however when he closes eyes and woke up again at 9 AM room spinning had
resolved but he felt very dizzy and off balance. He has had a feeling of dizziness and off-balance since. He denies any actual headache. He has no neurological deficits on exam but has no nystagmus. Though he seems to be walking steady he feels
off balance and is feeling very symptomatically dizzy. CAT scan negative. Patient has no trauma no neck pain. Not consistent with vertebral artery dissection.
he was eval by physical therapy. There is no nystagmus on exam and physical therapy also does not feel that this is BPV. With history of stroke will admit.
Chronic conditions affecting care:
CVA history of CAD
*Radiology
Radiology exam reviewed: radiology read reviewed
*Pulse Oximetry
Patient hypoxic: no
*EKG
Interpreted by ED Provider?: Yes
Comparison EKG: no changes
Heart Rate: 89
Rate: normal
Rhythm: sinus
Interval: first degree heart block
*Critical Care Note
Total Time (30-74mins, 75-104mins- exclusive of procedures): Not Applicable
ED Attending Note
-
Portions of this chart may have been created with voice recognition software.� Occasional wrong word or��sound alike� substitutions may have occurred due to the inherent limitations of voice recognition software.
Discharge Plan
Departure
Prescriptions:
No Action
aspirin 81 MG tablet,delayed release (DR/EC)
81 mg PO QPM
levothyroxine [Levoxyl] 125 MCG tablet
125 mcg PO DAILY
Patient Comments:
02/02/24: Meat Cutting Block Repairer wants the patient to only take Levoxyl, not generic. Spouse willing to bring Levoxyl from home.
losartan 25 MG tablet
12.5 mg PO QPM
ezetimibe 10 MG tablet
10 mg PO QPM
icosapent ethyl [Vascepa] 1 GM capsule
1 gm PO BID
nitroglycerin 0.4 MG tablet, sublingual
0.4 mg sublingual [id number] PRN (Reason: chest pain)
famotidine [Pepcid] 20 mg Tablet
20 mg PO DAILY
pantoprazole [Protonix] 40 mg Tablet,Delayed Release (Dr/Ec)
40 mg PO QPM
ketoconazole 2 % Shampoo
1 applic TOPICAL Q4D
fluticasone propionate 50 mcg/actuation Micro,Suspension
1 spray INTRANASAL HSPRN PRN (Reason: conjestion)
rosuvastatin 40 mg Tablet
40 mg PO QPM
Centrum Silver 0.4 mg-300 mcg- 250 mcg Tablet
1 tab PO QPM
Eliquis 5 mg Tablet
5 mg PO BID
Referrals:
Dyan Martel MD [Family Provider] -
Interventions
Interventions:
*Risk Screen - Suicide Last Done: 09/23/24 12:08
*General Assessment Last Done: 09/23/24 12:53
*Neglect/Abuse Screening Last Done: 09/23/24 12:08
*ED- Fall Risk Assessment Last Done: 09/23/24 12:53
ED- Neurological Assessment Last Done: 09/23/24 12:53
ED- Cardiac Assessment Last Done: 09/23/24 12:53
ED Swallowing Screen Last Done: 09/23/24 12:53
Discharge Date and Time
Print Language: URDU
[2024-09-23 13:46] LABS: % Basophils 0.4 % (0-2); % Eosinophils 0.5 % (0-6); % Immature Granulocytes 0.4 % (0-0.5); % Lymphocytes 18.8 % (20.5-51.1); % Monocytes 6.8 % (1.7-9.3); % Neutrophils 73.1 % (42.2-75.2); Absolute Lymphocytes 1.5 10^3/uL (1.2-3.4); Absolute Monocytes 0.6 10^3/uL (0.1-0.6); Absolute Neutrophils 5.9 10^3/uL (1.4-6.5); Hematocrit 45.1 % (39.0-52.0); Hemoglobin 15.5 g/dL (13.0-18.0); Mean Corp Hgb Conc. 34.4 g/dL (33.0-37.0); Mean Corpuscular Hgb 29.4 pg (27.0-31.0); Mean Corpuscular Volume 85.6 fL (80.0-94.0); Mean Platelet Volume 9.4 fL (7.4-10.4); Nucleated Red Blood Cells % 0 % (-); Platelet Count 285 10^3/uL (130-400); Red Blood Cell Count 5.27 10^6/uL (4.70-6.10); Red Cell Dist. Width 12.9 % (11.5-14.5); White Blood Cell Count 8.1 10^3/uL (4.8-10.8)
[2024-09-23 13:58] LABS: ALT (SGPT) 58 U/L (0-50); AST (SGOT) 36 U/L (17-59); Albumin 4.9 g/dl (3.5-5.0); Alkaline Phosphatase 103 U/L (38-126); Blood Urea Nitrogen 26 mg/dl (9-20); Carbon Dioxide 30 mmol/L (22-30); Chloride 98 mmol/L (98-107); Glucose 109 mg/dl (70-99); Potassium 4.3 mmol/L (3.5-5.1); Sodium 137 mmol/L (135-145); Total Bilirubin 1.8 mg/dl (0.2-1.3); Total Protein 7.3 g/dl (6.3-8.2); eGFR > 60.00
[2024-09-23 14:09] LABS: Troponin I < 0.012 ng/ml
--- NOTE | 2024-09-23 17:21 | HPS.HSE ---
Family Physician
-
Family Physician: Dyan Martel MD
Chief Complaint
-
vertigo
History of Present Illness
74-year-old male past medical history of presumed atrial fibrillation on Eliquis, CAD status post PCI, prior cardioembolic CVA, peptic ulcer disease, history of H. pylori, GERD, prediabetes, papillary thyroid carcinoma, obstructive sleep apnea,
kidney stone, BPPV, depression, BPH, presenting with vertigo. He felt weird at 4 AM while sleeping he opened his eyes and the room was spinning. This lasted for 5 seconds. Then he woke up at 8 AM and when he tried to stand he felt like he was
unable to his balance was off. He denies falling. He did have nausea. He has some headache. Denies visual symptoms. He feels dizzy at this time particularly when he moves his head or sits up.
He has been having pain in his right nose region and right face for the past 3 weeks when he puts a Q-tip in his right nostril. Occasionally has some drops of blood. Denies upper respiratory symptoms. Denies numbness or tingling, focal weakness.
Denies chest pain or shortness of breath.
He had an episode of vertigo 15 years ago attributed to labyrinthitis that improved with steroids.
Denies smoking or alcohol use.
Medical History
Past Medical History
Past Medical History: Reports Other (presumed atrial fibrillation on Eliquis, CAD status post PCI, prior cardioembolic CVA, peptic ulcer disease, history of H. pylori, GERD, prediabetes, papillary thyroid carcinoma, obstructive sleep apnea, kidney
stone, BPPV, depression, BPH)
Past Surgical History: Reports None
Social History
Tobacco: Non-smoker
Alcohol: None
Drug: None
Family History
Family History: Not pertinent
Allergies / Home Medications
Allergies reflects when Allergies were last updated in [facility].
Home Medications with original date entered in [facility]
Allergy/Medication List:
Allergies
Allergy/AdvReac Type Severity Reaction Status Date / Time
bee venom protein (honey bee) Allergy Syncopy, Verified 09/23/24 12:14
Vagal
Reaction
lisinopril Allergy Dry Cough Verified 09/23/24 12:14
morphine Allergy Hives Verified 09/23/24 12:14
Home Medications
aspirin 81 mg tablet,delayed release 81 mg PO QPM Blood Clot Prevention/Tx 09/16/16
ezetimibe 10 mg tablet 10 mg PO QPM High Cholesterol 10/29/20
icosapent ethyl 1 gram capsule (Vascepa) 1 gm PO BID High Cholesterol 10/29/20
levothyroxine 125 mcg tablet (Levoxyl) 125 mcg PO DAILY Thyroid 10/29/20
losartan 25 mg tablet 12.5 mg PO QPM Blood Pressure 10/29/20
nitroglycerin 0.4 mg sublingual tablet 0.4 mg sublingual [id number] PRN chest pain 10/29/20
famotidine 20 mg tablet (Pepcid) 20 mg PO HS Gastrointestinal Issue 11/25/22
pantoprazole 40 mg tablet,delayed release (Protonix) 40 mg PO DAILY Gastrointestinal Issue 11/25/22
apixaban 5 mg tablet (Eliquis) 5 mg PO BID Blood Clot Prevention/Tx 02/02/24
fluticasone propionate 50 mcg/actuation nasal spray,suspension 1 spray intranasal HSPRN PRN conjestion 02/02/24
rosuvastatin 40 mg tablet 40 mg PO QPM High Cholesterol 02/02/24
therapeutic multivitamin 1 tab PO DAILY 09/23/24
Review of Systems
-
History Source: Patient
A 12 point ROS was completed and negative except as noted: Yes
Constitutional: Reports No Symptoms
EENT: Reports No Symptoms
Respiratory: Reports No Symptoms
Cardiac: Reports No Symptoms
Abdomen/GI: Reports No Symptoms
: Reports No Symptoms
Musculoskeletal: Reports No Symptoms
Skin: Reports No Symptoms
Neurological: Reports No Symptoms
Endocrine: Reports No Symptoms
Hematologic/Lymphatic: Reports No Symptoms
Psych: Reports No Symptoms
Physical Exam
Vital Signs
Vital Signs
Temp Pulse Resp BP Pulse Ox
98.0 F 83 16 160/95 95
09/23/24 12:08 09/23/24 17:00 09/23/24 14:00 09/23/24 17:00 09/23/24 17:00
Physical Exam
General: Well Developed, Well Nourished and No Apparent Distress
HEENT: NormoCephalic, Moist mucous membranes and Atraumatic
Respiratory: Clear
Cardiac: S1/S2 and Regular Rhythm; No Murmur or Rub
GI: Soft, Non Tender, Non Distended and Normal Bowel Sounds; No Organomegaly
Rectal: Deferred by Provider
Musculoskeletal: No Clubbing, No Cyanosis and No Edema
Skin: No Rash
Neuro: Nonfocal/grossly intact
Laboratory Results
-
09/23/24 13:40
09/23/24 13:40
Laboratory Results
Total Bilirubin 1.8 mg/dl (0.2-1.3) H 09/23/24 13:40
AST 36 U/L (17-59) 09/23/24 13:40
ALT 58 U/L (0-50) H 09/23/24 13:40
Alkaline Phosphatase 103 U/L (38-126) 09/23/24 13:40
Troponin I < 0.012 ng/ml 09/23/24 13:40
Data Reviewed
-
Lab Data: Labs Reviewed by me
Old Records: Reviewed
Impression/Plan
-
IMPRESSION:
PLAN:
# Likely BPPV versus vestibular neuritis less likely new embolic CVA
-CT head no acute abnormality
-No nystagmus and negative head impulse test on examination, no neurological deficit
-Check MRI brain given history of embolic CVA in the past
-Check orthostatic vital signs
-As needed meclizine and Valium
-Continue Eliquis, aspirin
-Neurology consulted
# Right nasal discomfort
-Possibly due to stricture of right nasal passage vs sinusitis
-Outpatient ENT follow-up
Presumed paroxysmal atrial fibrillation
-As per patient never formally detected on loop recorders but being treated as such
-Continue Eliquis
Essential hypertension
-Continue losartan
CAD status post PCI
Prior cardioembolic CVA
Peptic ulcer disease
History of H. pylori
GERD
-Continue famotidine
Prediabetes
Papillary thyroid carcinoma
Hypothyroidism
Obstructive sleep apnea
-Continue CPAP
History of kidney stone
History of BPPV
Depression
BPH
Hypercholesterolemia
-Continue Zetia, Vascepa
Hypothyroidism
-Continue levothyroxine
Full code
DVT prophylaxis�Eliquis
Regular diet
[2024-09-23] MEDS: ASPIR LOW (ENTERIC COATED) 81 MG PO (19:53)
[2024-09-23] MEDS: COZAAR 12.5 MG PO (19:54)
[2024-09-23] MEDS: ZETIA 10 MG PO (19:56)
[2024-09-23] MEDS: CRESTOR 40 MG PO (19:56)
[2024-09-23] MEDS: ELIQUIS 5 MG PO (19:57)
[2024-09-23] MEDS: VALIUM 2 MG PO (20:13)
[2024-09-23] MEDS: PEPCID 20 MG PO (21:20)
[2024-09-24] VITALS (7 sets, daily range): BP systolic 114–138; BP diastolic 64–81; PULSE 84
[2024-09-24] MEDS: SYNTHROID 125 MCG PO (06:03)
--- NOTE | 2024-09-24 07:32 | CON.NEURO ---
Consultation
Order
Date of Consultation: 09/24/24
Requesting Provider: Samantha Simpson MD
Reason for Consult: Vertigo
Neurology Consultation Note.
HPI: This is a 74-year-old man who presented to [facility] on 09/23/2024 with vertigo and imbalance.
Mr. Sommer reports waking up around 3 or 4 AM with a sensation of spinning. Upon attempting to get up in the morning, the patient nearly fell due to severe balance issues and ongoing vertical versus changing position.
Mr. Sommer endorses R sided upper noseache as well as post nasal drip that he started applying A&D cream using Q-tips that began about 3 weeks ago. No reports of ear pain, tinnitus, fever, dysarthria or dysphagia.
The patient reports a history of vertigo, with a previous episode occurring after swimming during his trip to [place]. This episode lasted a week and was unresponsive to meclizine. At that time he was reportedly treated with steroids. The patient
frequently experiences vertigo, weakness, and fatigue.
The patient has a history of CAD including a 97% occlusion LAD occlusion that required stent placement 6 months prior to a stroke. He was on Aspirin and Brilinta at the time of the stroke that presented with left-sided weakness and hemineglect, and
had previously been on Plavix for about 10 years following a heart attack. The patient is currently taking Eliquis and is aware about bleeding risks. Yusef reportedly underwent Linq monitoring that was unremarkable with Linq explantation in 2020.
ER VS: 163/109-181/106, 84, afebrile.
EKG:NSR, with 1st degree of AVB. QTc Int : 416 ms
PDMP: No recently prescribed medication
Labs: Glucose�109, normal WBCs, sodium, creatinine�1.1, total bili�1.8, ALT�58
CT head wo contrast�chronic right MCA territory infarct.
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
PSH: Linq Explantation(10/29/2020), thyroidectomy, R inguinal hernia repair, PTCI,
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
FH: Mother at the age of 74 from PUD, father at the age of 92 from CAD and had colon cancer; sister from colon cancer
All: Lisinopril, morphine
ROS: Constitutional: Negative. Negative for chills, fever and unexpected weight change.
HENT: Positive for vertigo, hearing impairment
Eyes: Negative. Negative for photophobia, pain and visual disturbance.
Respiratory: Negative for cough, choking and shortness of breath.
Cardiovascular: Negative for chest pain, palpitations and leg swelling.
Gastrointestinal: Negative for abdominal pain and vomiting.
Endocrine: Negative. Negative for cold intolerance.
Genitourinary: Negative for dysuria, flank pain and urgency.
Musculoskeletal: Negative for back pain, gait problem, neck pain and neck stiffness.
Skin: Negative for rash.
Allergic/Immunologic: Negative. Negative for immunocompromised state.
Neurological: Positive for ataxia
Psychiatric/Behavioral: Negative for behavioral problems, confusion and hallucinations.
General: Well developed. In no acute distress.
Cardio: Regular rate and rhythm without murmur. Extremities are without cyanosis or edema.
Neuro:
Mental Status: Alert, oriented to person, place, and date. Normal attention and recall. Good fund of knowledge. Follows complex requests across the midline. Comprehension, naming, and repetition intact.
Cranial Nerves: Pupils are equally round and reactive to light. EOMs full. Visual burr full to confrontation. No ptosis. No nystagmus. V1-V3 intact to light touch and pinprick bilaterally, symmetric. Face symmetric. Poor hearing AU. The
palate elevated well. SCMs and traps 5/5. Tongue midline. No dysarthria.
Motor: Normal bulk and tone. No pronator or arm drift. Strength 5/5 throughout. No clonus.
Reflexes: 2+ throughout the upper extremities and knees. 2/2 in AJs. Plantar responses flexor bilaterally.
Sensory: Normal vibration and JPS.
Coordination: No dysmetria or tremor.
Gait: deferred
Assessment and Plan:
I. Probable peripheral vertigo
II. Chronic cryptogenic right MCA infarct.
III. Premature CAD
-Continue Telemetry monitoring
-Fall precautions
-Continue aspirin 81 mg for secondary stroke prevention
-LDL goal< 100, hemoglobin A1c goal< 7
-Please obtain CTA head and neck
-OP VNG, ENT follow-up
-Consider thrombophilia workup
-Would defer decision to continue Eliquis upon discharge to cardiology service
-Please check HbA1C, LDL.
-Continue Meclizine 25 mg every 8 hours as needed
-PT.
-DVT prophylaxis.
I personally reviewed all radiology and labs along with past medical records pertinent to current medical problems. Total time spent in patient care is 60 minutes.
Thank you for allowing us to participate in the care of this patient. We will continue to follow. Please do not hesitate to contact us with any questions or concerns.
Subjective/Objective
Subjective Data
Date of Service: September 24, 2024
Objective Data
Vital Signs
Temp Pulse Resp BP Pulse Ox
36.6 C 74 14 121/78 94
09/24/24 03:00 09/24/24 03:00 09/24/24 03:00 09/24/24 03:00 09/24/24 03:00
Sodium 137 mmol/L (135-145) 09/23/24 13:40
Potassium 4.3 mmol/L (3.5-5.1) 09/23/24 13:40
BUN 26 mg/dl (9-20) H 09/23/24 13:40
Glucose 109 mg/dl (70-99) H 09/23/24 13:40
Calcium 10.0 mg/dl (8.4-10.2) 09/23/24 13:40
Patient Allergies
bee venom protein (honey bee) Allergy (Verified 09/23/24 12:14)
Syncopy, Vagal Reaction
lisinopril Allergy (Verified 09/23/24 12:14)
Dry Cough
morphine Allergy (Verified 09/23/24 12:14)
Hives
Medications
-
Active Medications
Generic Name Dose Route Start Last Admin
Trade Name Freq PRN Reason Stop Dose Admin
Apixaban 5 mg 09/23/24 20:00 09/23/24 19:57
Apixaban (Eliquis) 5 Mg Tablet PO 10/21/24 19:59 5 mg
BID RENAE Administration
Aspirin 81 mg 09/23/24 18:27 09/23/24 19:53
Aspirin 81 Mg (Enteric Coated) Tablet PO 10/21/24 18:26 81 mg
QPM RENAE Administration
Diazepam 2 mg 09/23/24 18:27 09/23/24 20:13
Diazepam 2 Mg Tablet PO 10/21/24 18:26 2 mg
TIDPRN PRN Administration
vertigo, anxiety
Ezetimibe 10 mg 09/23/24 18:27 09/23/24 19:56
Ezetimibe (Zetia) 10 Mg Tablet PO 10/21/24 18:26 10 mg
QPM RENAE Administration
Famotidine 20 mg 09/23/24 22:00 09/23/24 21:20
Famotidine 20 Mg Tablet PO 10/21/24 21:59 20 mg
HS RENAE Administration
Levothyroxine Sodium 125 mcg 09/24/24 06:00 09/24/24 06:03
Levothyroxine 125 Mcg Tablet PO 10/22/24 05:59 125 mcg
DAILY @ 0600 RENAE Administration
Losartan Potassium 12.5 mg 09/23/24 18:27 09/23/24 19:54
Losartan 25 Mg Tablet PO 10/21/24 18:26 12.5 mg
QPM RENAE Administration
Meclizine HCl 12.5 mg 09/23/24 18:27
Meclizine 12.5 Mg Tablet PO 10/21/24 18:26
Q8HPRN PRN
vertigo
Multivitamins Therapeutic 1 tablet 09/24/24 08:00
Multivitamin Tablet PO 10/22/24 07:59
DAILY RENAE
Nitroglycerin 0.4 mg 09/23/24 18:27
Nitroglycerin 0.4 Mg Sl Tablet SL 10/21/24 18:26
[id number] PRN
chest pain
Pantoprazole Sodium 40 mg 09/24/24 08:00
Pantoprazole 40 Mg Delayed Release Tablet PO 10/22/24 07:59
DAILY RENAE
Rosuvastatin Calcium 40 mg 09/23/24 18:27 09/23/24 19:56
Rosuvastatin (Crestor) 40 Mg Tablet PO 10/21/24 18:26 40 mg
QPM RENAE Administration
Sodium Chloride 0 flush 09/23/24 19:00
Sodium Chloride 0.9% (Flush) Syringe IV 10/21/24 18:59
PER PROTOCOL RENAE
Home Medications
�Medication �Instructions �Recorded
aspirin 81 mg tablet,delayed 81 mg PO QPM Blood Clot 09/16/16
release Prevention/Tx
ezetimibe 10 mg tablet 10 mg PO QPM High Cholesterol 10/29/20
icosapent ethyl 1 gram capsule 1 gm PO BID High Cholesterol 10/29/20
(Vascepa)
levothyroxine 125 mcg tablet 125 mcg PO DAILY Thyroid 10/29/20
(Levoxyl)
losartan 25 mg tablet 12.5 mg PO QPM Blood Pressure 10/29/20
nitroglycerin 0.4 mg sublingual 0.4 mg sublingual [id number] PRN 10/29/20
tablet chest pain
famotidine 20 mg tablet (Pepcid) 20 mg PO HS Gastrointestinal Issue 11/25/22
pantoprazole 40 mg tablet,delayed 40 mg PO DAILY Gastrointestinal 11/25/22
release (Protonix) Issue
apixaban 5 mg tablet (Eliquis) 5 mg PO BID Blood Clot 02/02/24
Prevention/Tx
fluticasone propionate 50 1 spray intranasal HSPRN PRN 02/02/24
mcg/actuation nasal conjestion
spray,suspension
rosuvastatin 40 mg tablet 40 mg PO QPM High Cholesterol 02/02/24
therapeutic multivitamin 1 tab PO DAILY 09/23/24
Vital Signs and Labs
-
Vital Signs and Labs:
Vital Signs
Temp Pulse Resp BP Pulse Ox
36.6 C 74 14 121/78 94
09/24/24 03:00 09/24/24 03:00 09/24/24 03:00 09/24/24 03:00 09/24/24 03:00
Lab Results
09/24/24 06:56
Sodium 137 mmol/L (135-145) 09/23/24 13:40
Potassium 4.3 mmol/L (3.5-5.1) 09/23/24 13:40
BUN 26 mg/dl (9-20) H 09/23/24 13:40
Glucose 109 mg/dl (70-99) H 09/23/24 13:40
Calcium 10.0 mg/dl (8.4-10.2) 09/23/24 13:40
Medications
-
Medications:
Generic Name Dose Route Start Last Admin
Trade Name Freq PRN Reason Stop Dose Admin
Apixaban 5 mg 09/23/24 20:00 09/23/24 19:57
Apixaban (Eliquis) 5 Mg Tablet PO 10/21/24 19:59 5 mg
BID RENAE Administration
Aspirin 81 mg 09/23/24 18:27 09/23/24 19:53
Aspirin 81 Mg (Enteric Coated) Tablet PO 10/21/24 18:26 81 mg
QPM RENAE Administration
Diazepam 2 mg 09/23/24 18:27 09/23/24 20:13
Diazepam 2 Mg Tablet PO 10/21/24 18:26 2 mg
TIDPRN PRN Administration
vertigo, anxiety
Ezetimibe 10 mg 09/23/24 18:27 09/23/24 19:56
Ezetimibe (Zetia) 10 Mg Tablet PO 10/21/24 18:26 10 mg
QPM RENAE Administration
Famotidine 20 mg 09/23/24 22:00 09/23/24 21:20
Famotidine 20 Mg Tablet PO 10/21/24 21:59 20 mg
HS RENAE Administration
Levothyroxine Sodium 125 mcg 09/24/24 06:00 09/24/24 06:03
Levothyroxine 125 Mcg Tablet PO 10/22/24 05:59 125 mcg
DAILY @ 0600 RENAE Administration
Losartan Potassium 12.5 mg 09/23/24 18:27 09/23/24 19:54
Losartan 25 Mg Tablet PO 10/21/24 18:26 12.5 mg
QPM RENAE Administration
Meclizine HCl 12.5 mg 09/23/24 18:27
Meclizine 12.5 Mg Tablet PO 10/21/24 18:26
Q8HPRN PRN
vertigo
Multivitamins Therapeutic 1 tablet 09/24/24 08:00
Multivitamin Tablet PO 10/22/24 07:59
DAILY RENAE
Nitroglycerin 0.4 mg 09/23/24 18:27
Nitroglycerin 0.4 Mg Sl Tablet SL 10/21/24 18:26
[id number] PRN
chest pain
Pantoprazole Sodium 40 mg 09/24/24 08:00
Pantoprazole 40 Mg Delayed Release Tablet PO 10/22/24 07:59
DAILY RENAE
Rosuvastatin Calcium 40 mg 09/23/24 18:27 09/23/24 19:56
Rosuvastatin (Crestor) 40 Mg Tablet PO 10/21/24 18:26 40 mg
QPM RENAE Administration
Sodium Chloride 0 flush 09/23/24 19:00
Sodium Chloride 0.9% (Flush) Syringe IV 10/21/24 18:59
PER PROTOCOL RENAE
Home Medications
-
Home Medications
aspirin 81 mg tablet,delayed release 81 mg PO QPM Blood Clot Prevention/Tx 09/16/16
ezetimibe 10 mg tablet 10 mg PO QPM High Cholesterol 10/29/20
icosapent ethyl 1 gram capsule (Vascepa) 1 gm PO BID High Cholesterol 10/29/20
levothyroxine 125 mcg tablet (Levoxyl) 125 mcg PO DAILY Thyroid 10/29/20
losartan 25 mg tablet 12.5 mg PO QPM Blood Pressure 10/29/20
nitroglycerin 0.4 mg sublingual tablet 0.4 mg sublingual [id number] PRN chest pain 10/29/20
famotidine 20 mg tablet (Pepcid) 20 mg PO HS Gastrointestinal Issue 11/25/22
pantoprazole 40 mg tablet,delayed release (Protonix) 40 mg PO DAILY Gastrointestinal Issue 11/25/22
apixaban 5 mg tablet (Eliquis) 5 mg PO BID Blood Clot Prevention/Tx 02/02/24
fluticasone propionate 50 mcg/actuation nasal spray,suspension 1 spray intranasal HSPRN PRN conjestion 02/02/24
rosuvastatin 40 mg tablet 40 mg PO QPM High Cholesterol 02/02/24
therapeutic multivitamin 1 tab PO DAILY 09/23/24
[2024-09-24 07:40] LABS: % Basophils 0.5 % (0-2); % Eosinophils 1.2 % (0-6); % Immature Granulocytes 0.5 % (0-0.5); % Monocytes 9.8 % (1.7-9.3); Absolute Eosinophils 0.1 10^3/uL (0-0.7); Absolute Lymphocytes 2.3 10^3/uL (1.2-3.4); Absolute Monocytes 0.8 10^3/uL (0.1-0.6); Absolute Neutrophils 4.8 10^3/uL (1.4-6.5); Hematocrit 43.1 % (39.0-52.0); Hemoglobin 14.8 g/dL (13.0-18.0); Mean Corp Hgb Conc. 34.3 g/dL (33.0-37.0); Mean Corpuscular Hgb 29.3 pg (27.0-31.0); Mean Corpuscular Volume 85.3 fL (80.0-94.0); Mean Platelet Volume 9.7 fL (7.4-10.4); Nucleated Red Blood Cells % 0 % (-); Platelet Count 281 10^3/uL (130-400); Red Blood Cell Count 5.05 10^6/uL (4.70-6.10); Red Cell Dist. Width 12.8 % (11.5-14.5); White Blood Cell Count 8.1 10^3/uL (4.8-10.8)
[2024-09-24] MEDS: ELIQUIS 5 MG PO ×2 (07:41→21:03)
[2024-09-24] MEDS: THERAGRAN 1 TABLET PO (07:41)
[2024-09-24] MEDS: PROTONIX 40 MG PO (07:41)
[2024-09-24 07:53] LABS: ALT (SGPT) 50 U/L (0-50); AST (SGOT) 34 U/L (17-59); Alkaline Phosphatase 92 U/L (38-126); Blood Urea Nitrogen 27 mg/dl (9-20); Calcium 9.8 mg/dl (8.4-10.2); Carbon Dioxide 28 mmol/L (22-30); Chloride 104 mmol/L (98-107); Estimated Creatinine Clearance 65 ml/min; Glucose 105 mg/dl (70-99); Sodium 138 mmol/L (135-145); Total Bilirubin 1.3 mg/dl (0.2-1.3); Total Protein 6.3 g/dl (6.3-8.2); eGFR > 60.00
[2024-09-24] MEDS: VALIUM 2 MG PO (10:09)
--- NOTE | 2024-09-24 11:21 | W.PN.HOSP.TC ---
Today's Communication/Plan
-
add prednisone
pt/ot
continue symptomatic care
mri brain f/u
Assessment / Plan
Assessment / Plan
# Vertigo
R/o CVA
-CT head no acute abnormality
-No nystagmus and negative head impulse test on examination, no neurological deficit
-MR Brain result pending.
-Check orthostatic vital signs
-As needed meclizine and Valium
-Continue Eliquis, aspirin
-Neurology consulted for evaluation
-Prednisone added to regimen
# Right nasal discomfort
-Possibly due to stricture of right nasal passage vs sinusitis
-Outpatient ENT follow-up
#Presumed paroxysmal atrial fibrillation
-As per patient never formally detected on loop recorders but being treated as such
-Continue Eliquis
Essential hypertension -Continue losartan
CAD status post PCI
Prior cardioembolic CVA
Peptic ulcer disease
History of H. pylori
GERD-Continue famotidine
Prediabetes
Papillary thyroid carcinoma
Hypothyroidism
Obstructive sleep apnea-Continue CPAP
History of kidney stone
History of BPPV
Depression
BPH
Hypercholesterolemia-Continue Zetia, Vascepa
Hypothyroidism-Continue levothyroxine
Full code
DVT prophylaxis�Eliquis
Total time spent : 52 mins
Case discussed with neurology
Anticipated Discharge: Within 24 hours
Subjective/Interval History
-
Date of Service: September 24, 2024
Continues to feel vertiginous with minimal movement of head
balance still off
no nausea/vomiting
Objective Data
-
Labs:
Laboratory Results
09/24/24
06:56
WBC 8.1
Hgb 14.8
Hct 43.1
Plt Count 281
Sodium 138
Potassium 4.0
Chloride 104
Carbon Dioxide 28
BUN 27 H
Creatinine 1.0
Glucose 105 H
Calcium 9.8
Total Bilirubin 1.3
AST 34
ALT 50
Alkaline Phosphatase 92
Vital Signs:
Vital Signs
Temp Pulse Resp BP Pulse Ox
97.7 F 64 17 132/80 92
09/24/24 07:41 09/24/24 07:41 09/24/24 07:41 09/24/24 07:41 09/24/24 07:41
I&O
09/23/24 09/24/24 09/25/24
06:59 06:59 07:59
Intake Total 720 / 720
Balance 720 / 720
Review of Systems
-
Respiratory: Reports No Symptoms
Cardiac: Reports No Symptoms
Abdomen/GI: Reports No Symptoms
Physical Exam
-
General: Comfortable
HEENT: Negative Oxygen
Neuro: Awake, Alert and No Motor Deficits; Negative Tremors, Slurred Speech or Facial Droop
[2024-09-24] MEDS: DELTASONE 40 MG PO (11:58)
[2024-09-24] MEDS: ANTIVERT 12.5 MG PO ×2 (12:10→21:05)
[2024-09-24] MEDS: ASPIR LOW (ENTERIC COATED) 81 MG PO (18:27)
[2024-09-24] MEDS: ZETIA 10 MG PO (18:27)
[2024-09-24] MEDS: COZAAR 12.5 MG PO (18:28)
[2024-09-24] MEDS: CRESTOR 40 MG PO (18:28)
[2024-09-24] MEDS: PEPCID 20 MG PO (21:03)
[2024-09-25 03:00] VITALS: BP 110/73
[2024-09-25] MEDS: SYNTHROID 125 MCG PO (06:00)
[2024-09-25 07:15] VITALS: BP 118/69
[2024-09-25] MEDS: ELIQUIS 5 MG PO (08:59)
[2024-09-25] MEDS: THERAGRAN 1 TABLET PO (08:59)
[2024-09-25] MEDS: DELTASONE 40 MG PO (08:59)
[2024-09-25] MEDS: PROTONIX 40 MG PO (08:59)
[2024-09-25 11:23] VITALS: BP 120/70
--- NOTE | 2024-09-25 11:32 | CM ---
Spoke with patient's spouse who stated that patient lives with her in a multi-story townhouse with one step to enter. He is independent with his ADLs, personal care, dressing and bathing. 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 He
drives and can get to his appointments and do his own shopping. He has never had VN. He has not been to a SNF. He has a CPAP but no other DME.
Patient has a prescription plan and uses, [facility] and [facility] for his medications.
His PCP is, Siva Martel.
OBS status reviewed, signed on chart.
Plan: Case management will continue to follow and assist with discharge planning. Home no needs.
--- NOTE | 2024-09-25 12:11 | W.PN.HOSP.TC ---
Today's Communication/Plan
-
d/c home
Assessment / Plan
Assessment / Plan
# Vertigo
CVA ruled out.
-CT head no acute abnormality
-No nystagmus and negative head impulse test on examination, no neurological deficit
-MR Brain and CTA h&n did not show any acute issues.
-Cleared by PT - no need. Outpatient PT and vestibular assessment script provided.
-As needed meclizine and Valium
-Continue Eliquis, aspirin
-Prednisone for 5 days
# Right nasal discomfort
-Possibly due to stricture of right nasal passage vs sinusitis
-Outpatient ENT follow-up
#Presumed paroxysmal atrial fibrillation
-As per patient never formally detected on loop recorders but being treated as such
-Continue Eliquis
Essential hypertension -Continue losartan
CAD status post PCI
Prior cardioembolic CVA
Peptic ulcer disease
History of H. pylori
GERD-Continue famotidine
Prediabetes
Papillary thyroid carcinoma
Hypothyroidism
Obstructive sleep apnea-Continue CPAP
History of kidney stone
History of BPPV
Depression
BPH
Hypercholesterolemia-Continue Zetia, Vascepa
Hypothyroidism-Continue levothyroxine
Full code
DVT prophylaxis�Eliquis
More than 30 minutes spent in discharge including
Final examination of the patient
Summarizing hospital stay
Instructions for continuing care to all relevant caregivers
Preparation of discharge records, prescriptions, and referral forms
Total time spent (in minutes): 37 mins
Anticipated Discharge: Today
Subjective/Interval History
-
Date of Service: September 25, 2024
dizziness better
able to work with PT
Objective Data
-
Vital Signs:
Vital Signs
Temp Pulse Resp BP Pulse Ox
97.7 F 68 16 120/70 98
09/25/24 11:23 09/25/24 11:23 09/25/24 11:23 09/25/24 11:23 09/25/24 11:23
I&O
09/24/24 09/25/24 09/26/24
05:59 06:59 06:59
Intake Total
Balance
Review of Systems
-
Respiratory: Reports No Symptoms
Cardiac: Reports No Symptoms
Abdomen/GI: Reports No Symptoms
Physical Exam
-
General: Comfortable
HEENT: Negative Oxygen
Neuro: Awake, Alert and No Motor Deficits; Negative Tremors, Slurred Speech or Facial Droop
--- NOTE | 2024-09-25 15:14 | W.DCSUMMARY ---
Discharge Summary
Discharge Data
Date of Admission: 09/23/24
Date of Discharge: 09/25/24
-
Pending Results: No
Hospital Course
Discharging Physician : Dr Claude Dumont
Disposition : Home
Primary care physician : Dr Dyan Martel
Principal Discharge diagnosis :
Vertigo/vestibular neuritis
Right-sided sinusitis
Chronic Discharge diagnosis :
History of stroke due to presumed atrial fibrillation episode
Essential hypertension
Coronary disease with history of intervention
Peptic ulcer disease
History of Helicobacter pylori infection
Gastroesophageal reflux disease
Prediabetes
History of papillary thyroid carcinoma status post resection
Obstructive sleep apnea on positive airway pressure therapy
History of nephrolithiasis
History of benign positional paroxysmal vertigo
Depression
Hyperlipidemia
Hypothyroidism
Hospital Course :
Patient is a 75-year-old male with no mentioned past medical history came to ER with new onset of balance problem and feeling of dizzy that started in the night. No focal neurological deficit. Patient was denying any tremors/diplopia/muscle
discoordination. Patient has history of A-fib which was never found with rhythm monitoring in the past although had CVA and was attributed to paroxysmal episode. Patient was on Eliquis by cardiology due to this reason for last few years. This
visit on exam there was concern of possible posterior cerebral circulation stroke. Neurology was involved in care and patient was maintained on home regimen of aspirin/Eliquis. An MRI brain and CTA head and neck was done which ruled out any
vascular issues/insufficiency and stroke. Patient was evaluated by physical therapy and there was concern of possible vertigo episode/vestibular neuritis episode. Patient was started on combination of steroid/Valium/meclizine. Patient was
monitored in hospital for 48 hours and had an improvement in symptoms. PT cleared patient for home level discharge. Patient recommended to follow-up with ENT in the office as well as was complaining some right-sided sinus problem. No antibiotic
provided as no clinical signs to support bacterial sinusitis.
Important imaging findings :
None
Procedure findings :
None
Discharge Plan
-
Patient Disposition: Home (Routine Discharge)
Discharge Diagnosis/Procedures: Vertigo/vestibular neuritis
Condition: Fair
Diet: 2 Gram Sodium
Activity: As tolerated and With Walker
Driving Restrictions: No driving for 1 week
Bathing Restrictions: OK to Shower
Activity Restrictions/Additional Instructions:
Please follow up with ENT physician office in December.
Referrals:
Dyan Martel MD [Family Provider] - in one week
Prescriptions:
New
meclizine 25 mg tablet
25 mg PO TID PRN (Reason: Vertigo) Qty: 15 0RF
prednisone 20 mg tablet
40 mg PO DAILY Qty: 6 0RF
Rx Instructions:
For 3 days only
diazepam [Valium] 2 mg tablet
2 mg PO TID PRN (Reason: Vertigo) Qty: 10 0RF
Continued
aspirin 81 MG tablet,delayed release (DR/EC)
81 mg PO QPM
levothyroxine [Levoxyl] 125 MCG tablet
125 mcg PO DAILY
Patient Comments:
02/02/24: Meter Calibrator wants the patient to only take Levoxyl, not generic. Spouse willing to bring Levoxyl from home.
losartan 25 MG tablet
12.5 mg PO QPM
ezetimibe 10 MG tablet
10 mg PO QPM
icosapent ethyl [Vascepa] 1 GM capsule
1 gm PO BID
nitroglycerin 0.4 MG tablet, sublingual
0.4 mg sublingual [id number] PRN (Reason: chest pain)
famotidine [Pepcid] 20 mg Tablet
20 mg PO HS
pantoprazole [Protonix] 40 mg Tablet,Delayed Release (Dr/Ec)
40 mg PO DAILY
fluticasone propionate 50 mcg/actuation Delta,Suspension
1 spray INTRANASAL HSPRN PRN (Reason: conjestion)
rosuvastatin 40 mg Tablet
40 mg PO QPM
Eliquis 5 mg Tablet
5 mg PO BID
therapeutic multivitamin Tablet
1 tab PO DAILY
Discharge Orders:
Discharge Patient (As Directed); Ordered 09/25/24
Ordered By: Claude Dumont
Discharge Date and Time
Discharge Date/Time: 09/25/24 11:22
Print Language: MARSHALLESE
== END 2024-09-25 11:22 | disposition home or self-care (01) ==
LOC: 3 WEST ACU 17:21
PROVIDERS: Nurse Practitioner; ADMITTING PHYSICIAN Hospitalist; ATTENDING PHYSICIAN Hospitalist; CONSULT PHYSICIAN Psychiatry & Neurology Neurology; EMERGENCY PHYSICIAN Student in an Organized Health Care Education/Training Program; FAMILY PHYSICIAN Family Medicine
DX: H81.20 Vestibular neuronitis, unspecified ear (principal); R11.0 Nausea; I25.10 Atherosclerotic heart disease of native coronary artery without angina pectoris; I10 Essential (primary) hypertension; K21.9 Gastro-esophageal reflux disease without esophagitis; E78.00 Pure hypercholesterolemia, unspecified; E03.9 Hypothyroidism, unspecified; J32.9 Chronic sinusitis, unspecified; R26.81 Unsteadiness on feet; R73.03 Prediabetes; R26.89 Other abnormalities of gait and mobility; R53.1 Weakness; G47.33 Obstructive sleep apnea (adult) (pediatric); F32.A Depression, unspecified; G93.89 Other specified disorders of brain; N40.0 Benign prostatic hyperplasia without lower urinary tract symptoms; I25.2 Old myocardial infarction; Z79.01 Long term (current) use of anticoagulants; Z85.850 Personal history of malignant neoplasm of thyroid; Z79.82 Long term (current) use of aspirin; Z79.890 Hormone replacement therapy; Z82.49 Family history of ischemic heart disease and other diseases of the circulatory system; Z95.5 Presence of coronary angioplasty implant and graft; Z86.73 Personal history of transient ischemic attack (TIA), and cerebral infarction without residual deficits; Z86.19 Personal history of other infectious and parasitic diseases; Z87.442 Personal history of urinary calculi; Z87.11 Personal history of peptic ulcer disease; Z88.5 Allergy status to narcotic agent; Z88.8 Allergy status to other drugs, medicaments and biological substances; Z91.030 Bee allergy status; Z80.0 Family history of malignant neoplasm of digestive organs; Z90.89 Acquired absence of other organs
CPT/HCPCS: 70450; 70496; 70498; 70551; 80053; 84484; 85025; 93005; 97530; 99285; G0378; Q9967

== ENCOUNTER 2024-10-06 06:18 | Day surgery (SDC) | payer OTHER, MEDICARE, SELFPAY | END 2024-10-06 14:05 | disposition home or self-care (01) | LOC: GI 06:18 | PROVIDERS: ATTENDING PHYSICIAN Internal Medicine Gastroenterology | DX: Z12.11 Encounter for screening for malignant neoplasm of colon (principal); K57.30 Diverticulosis of large intestine without perforation or abscess without bleeding; K64.8 Other hemorrhoids; D12.2 Benign neoplasm of ascending colon; K63.5 Polyp of colon; Z86.0100 Personal history of colon polyps, unspecified | CPT/HCPCS: 45385; 45380; 88305 ==

== ENCOUNTER → 2024-10-07 11:20 | Outpatient (REF) | payer MEDICARE, OTHER, SELFPAY ==
[2024-10-07 11:53] LABS: Urine Albumin Negative (Neg - Trace); Urine Bilirubin Negative (Negative); Urine Character Clear (Clear); Urine Color Yellow; Urine Glucose Negative (Negative); Urine Ketone Negative (Negative); Urine Leukocyte Negative (Negative); Urine Nitrite Negative (Negative); Urine Occult Blood Negative (Negative); Urine Urobilinogen Negative (Neg - 1+)
[2024-10-07 13:32] LABS: PSA, Total - Diagnostic 2.06 ng/ml (0.0-4.0)
== END ==
LOC: REG 11:20
PROVIDERS: ATTENDING PHYSICIAN Specialist; FAMILY PHYSICIAN Family Medicine
DX: N40.1 Benign prostatic hyperplasia with lower urinary tract symptoms (principal)
CPT/HCPCS: 36415; 81003; 84153

== ENCOUNTER 2024-10-17 06:17 | Outpatient (RCR) | payer MEDICARE, OTHER, SELFPAY | END 2024-10-17 23:59 | disposition home or self-care (01) | LOC: RPT 06:17 | PROVIDERS: ATTENDING PHYSICIAN Family Medicine | DX: H81.393 Other peripheral vertigo, bilateral (principal); Z73.6 Limitation of activities due to disability; I69.398 Other sequelae of cerebral infarction | CPT/HCPCS: 97112; 97162 ==

== ENCOUNTER → 2024-11-02 09:33 | Outpatient (REF) | payer MEDICARE, OTHER, SELFPAY ==
[2024-11-02 10:48] LABS: % Basophils 0.6 % (0-2); % Eosinophils 1.9 % (0-6); % Immature Granulocytes 0.5 % (0-0.5); % Lymphocytes 27.5 % (20.5-51.1); % Monocytes 9.3 % (1.7-9.3); % Neutrophils 60.2 % (42.2-75.2); Absolute Basophils 0.1 10^3/uL (0-0.2); Absolute Eosinophils 0.2 10^3/uL (0-0.7); Absolute Lymphocytes 2.2 10^3/uL (1.2-3.4); Absolute Monocytes 0.7 10^3/uL (0.1-0.6); Absolute Neutrophils 4.8 10^3/uL (1.4-6.5); Hematocrit 42.5 % (39.0-52.0); Hemoglobin 14.7 g/dL (13.0-18.0); Mean Corp Hgb Conc. 34.6 g/dL (33.0-37.0); Mean Corpuscular Hgb 29.9 pg (27.0-31.0); Mean Corpuscular Volume 86.4 fL (80.0-94.0); Mean Platelet Volume 9.1 fL (7.4-10.4); Nucleated Red Blood Cells % 0 % (-); Platelet Count 236 10^3/uL (130-400); Red Blood Cell Count 4.92 10^6/uL (4.70-6.10); White Blood Cell Count 7.9 10^3/uL (4.8-10.8)
[2024-11-02 11:03] LABS: Glycohemoglobin (HgbA1c) 6.2 % (4.0-5.6)
[2024-11-02 11:46] LABS: ALT (SGPT) 66 U/L (0-50); AST (SGOT) 37 U/L (17-59); Albumin 3.9 g/dl (3.5-5.0); Alkaline Phosphatase 109 U/L (38-126); Blood Urea Nitrogen 22 mg/dl (9-20); Calcium 9.6 mg/dl (8.4-10.2); Carbon Dioxide 32 mmol/L (22-30); Chloride 103 mmol/L (98-107); Glucose 96 mg/dl (70-99); HDL Cholesterol 49 mg/dl; LDL Cholesterol, Calculated 40 mg/dl; Potassium 3.8 mmol/L (3.5-5.1); Sodium 141 mmol/L (135-145); Total Bilirubin 1.4 mg/dl (0.2-1.3); Total Cholesterol 112 mg/dl (50-199); Total Protein 6.3 g/dl (6.3-8.2); Triglyceride 117 mg/dl (10-149); Very Low Density Lipoprotein 23 mg/dl (0-30); eGFR > 60.00
[2024-11-02 18:02] LABS: Vitamin D, 25-OH*** 33.7 ng/mL (30-80)
[2024-11-02 18:16] LABS: TSH 4.15 uIU/ml (0.47-4.68)
== END ==
LOC: REG 09:33
PROVIDERS: ATTENDING PHYSICIAN Internal Medicine Cardiovascular Disease; FAMILY PHYSICIAN Family Medicine
DX: E78.5 Hyperlipidemia, unspecified (principal); R73.03 Prediabetes; E03.9 Hypothyroidism, unspecified; E55.9 Vitamin D deficiency, unspecified; I10 Essential (primary) hypertension
CPT/HCPCS: 36415; 80053; 80061; 82306; 83036; 84443; 85025

== ENCOUNTER 2024-11-16 06:15 | Outpatient (RCR) | payer MEDICARE, OTHER, SELFPAY | END 2024-11-16 23:59 | disposition home or self-care (01) | LOC: RPT 06:15 | PROVIDERS: ATTENDING PHYSICIAN Family Medicine | DX: H81.393 Other peripheral vertigo, bilateral (principal); Z73.6 Limitation of activities due to disability; I69.398 Other sequelae of cerebral infarction | CPT/HCPCS: 97112 ==

== ENCOUNTER 2024-12-05 07:48 | Outpatient (RCR) | payer MEDICARE, OTHER, SELFPAY | END 2024-12-05 10:00 | disposition home or self-care (01) | LOC: RPT 07:48 | PROVIDERS: ATTENDING PHYSICIAN Family Medicine | DX: H81.393 Other peripheral vertigo, bilateral (principal); Z73.6 Limitation of activities due to disability; I69.398 Other sequelae of cerebral infarction | CPT/HCPCS: 97112 ==

== ENCOUNTER → 2025-03-23 08:39 | Outpatient (REF) | payer MEDICARE, OTHER, SELFPAY ==
[2025-03-23 10:22] LABS: ALT (SGPT) 38 U/L (0-50); AST (SGOT) 27 U/L (17-59); Albumin 4.3 g/dl (3.5-5.0); Alkaline Phosphatase 93 U/L (38-126); Blood Urea Nitrogen 21 mg/dl (9-20); Calcium 9.6 mg/dl (8.4-10.2); Carbon Dioxide 32 mmol/L (22-30); Chloride 102 mmol/L (98-107); Glucose 100 mg/dl (70-99); Potassium 4.1 mmol/L (3.5-5.1); Sodium 140 mmol/L (135-145); Total Protein 6.6 g/dl (6.3-8.2); eGFR > 60.00
== END ==
LOC: REG 08:39
PROVIDERS: ATTENDING PHYSICIAN Family Medicine
DX: R74.8 Abnormal levels of other serum enzymes (principal); E89.0 Postprocedural hypothyroidism
CPT/HCPCS: 36415; 80053; 84443

== ENCOUNTER → 2025-05-08 08:41 | Outpatient (REF) | payer MEDICARE, OTHER, SELFPAY ==
[2025-05-08 09:36] LABS: Hematocrit 44.2 % (39.0-52.0); Hemoglobin 15.1 g/dL (13.0-18.0); Mean Corp Hgb Conc. 34.2 g/dL (33.0-37.0); Mean Corpuscular Volume 85.5 fL (80.0-94.0); Nucleated Red Blood Cells % 0 % (-); Platelet Count 318 10^3/uL (130-400); Red Cell Dist. Width 12.7 % (11.5-14.5)
[2025-05-08 10:07] LABS: Glycohemoglobin (HgbA1c) 5.8 % (4.0-5.6)
[2025-05-08 10:18] LABS: ALT (SGPT) 44 U/L (0-50); AST (SGOT) 31 U/L (17-59); Albumin 4.5 g/dl (3.5-5.0); Alkaline Phosphatase 99 U/L (38-126); Blood Urea Nitrogen 17 mg/dl (9-20); Calcium 9.5 mg/dl (8.4-10.2); Carbon Dioxide 31 mmol/L (22-30); Chloride 102 mmol/L (98-107); Glucose 103 mg/dl (70-99); HDL Cholesterol 49 mg/dl; LDL Cholesterol, Calculated 36 mg/dl; Potassium 4.3 mmol/L (3.5-5.1); Sodium 139 mmol/L (135-145); Total Protein 6.9 g/dl (6.3-8.2); Very Low Density Lipoprotein 20 mg/dl (0-30); eGFR > 60.00
== END ==
LOC: REG 08:41
PROVIDERS: ATTENDING PHYSICIAN Internal Medicine Cardiovascular Disease; FAMILY PHYSICIAN Family Medicine
DX: I11.0 Hypertensive heart disease with heart failure (principal); I25.10 Atherosclerotic heart disease of native coronary artery without angina pectoris; I50.22 Chronic systolic (congestive) heart failure; I51.9 Heart disease, unspecified; I25.2 Old myocardial infarction; E66.09 Other obesity due to excess calories; Z85.850 Personal history of malignant neoplasm of thyroid; R73.02 Impaired glucose tolerance (oral); E78.5 Hyperlipidemia, unspecified; R73.03 Prediabetes
CPT/HCPCS: 36415; 80053; 80061; 83036; 84443; 85025